=== PATIENT | female | born 1945 | race Caucasian/White ===

== ENCOUNTER → 2016-07-04 | Outpatient (CLI) | payer MEDICARE ==
[2016-07-04 09:45] LABS: CHCM 32.5; HCT 38.6 % (34.0-46.0); HDW 2.34; HGB 12.5 gm/dL (11.4-16.0); MCH 29.2 pg (25.0-35.0); MCHC 32.5 g/dL (31.0-37.0); MCV 89.8 fL (80.0-100.0); Mean Platelet Volume 7.5; RDW 14.6 % (11.5-15.5); WBC 5.8 k/uL (3.8-10.6)
[2016-07-04 09:55] LABS: Anion Gap 13 mmol/L; Blood Urea Nitrogen 22 mg/dL (7-17); Carbon Dioxide 26 mmol/L (22-30); Chloride 105 mmol/L (98-107); Non-African American GFR(MDRD) >60 (>60 ml/min/1.73 sqM); Potassium 4.6 mmol/L (3.5-5.1); Sodium 144 mmol/L (137-145)
== END | disposition home or self-care (01) ==
LOC: LABWHC1 09:24
PROVIDERS: ATTEND Internal Medicine Cardiovascular Disease
DX: R60.0 Localized edema (principal)
CPT/HCPCS: 36415; 80051; 82565; 83880; 84443; 84520; 85027

== ENCOUNTER → 2017-02-16 | Outpatient (CLI) | payer MEDICARE ==
--- NOTE | 2017-02-20 10:12 | MM ---
Reason for exam: screening (asymptomatic). Last mammogram was performed 1 year and 6 months ago. History: Patient is postmenopausal. Family history of breast cancer in sister at age 71 and breast cancer in mother at age 68. Took hormonal contraceptives for 7 years beginning at age 27. Physical Findings: A clinical breast exam by your physician is recommended on an annual basis and results should be correlated with mammographic findings. MG 3D Screening Mammo W/Cad Bilateral CC, MLO, and CV view(s) were taken. Prior study comparison: August 13, 2015, bilateral MG screening mammo w CAD. April 17, 2014, bilateral MG screening mammo w CAD. The breast tissue is heterogeneously dense. This may lower the sensitivity of mammography. No significant changes when compared with prior studies. ASSESSMENT: Benign, BI-RAD 2 RECOMMENDATION: Routine screening mammogram of both breasts in 1 year.
== END | disposition home or self-care (01) ==
LOC: RADMAMWWP 07:39
PROVIDERS: ATTEND Family Medicine
DX: Z12.31 Encounter for screening mammogram for malignant neoplasm of breast (principal)
CPT/HCPCS: 77063; G0202

== ENCOUNTER → 2018-11-26 | Outpatient (CLI) | payer MEDICARE ==
--- NOTE | 2018-11-27 13:24 | MM ---
Reason for exam: screening (asymptomatic). Last mammogram was performed 1 year and 9 months ago. History: Patient is postmenopausal. Family history of breast cancer in sister at age 71 and breast cancer in mother at age 68. Took hormonal contraceptives for 7 years beginning at age 27. Physical Findings: A clinical breast exam by your physician is recommended on an annual basis and results should be correlated with mammographic findings. MG 3D Screening Mammo W/Cad Bilateral CC and MLO view(s) were taken. Prior study comparison: February 16, 2017, bilateral MG 3d screening mammo w/cad. August 13, 2015, bilateral MG screening mammo w CAD. The breast tissue is heterogeneously dense. This may lower the sensitivity of mammography. No significant changes when compared with prior studies. ASSESSMENT: Negative, BI-RAD 1 RECOMMENDATION: Routine screening mammogram of both breasts in 1 year.
== END | disposition home or self-care (01) ==
LOC: RADMAMWWP 10:09
PROVIDERS: ATTEND Family Medicine
DX: Z12.31 Encounter for screening mammogram for malignant neoplasm of breast (principal)
CPT/HCPCS: 77063; 77067

== ENCOUNTER → 2020-08-04 | Outpatient (CLI) | payer MEDICARE ==
[2020-08-04 11:03] LABS: Amorphous Sediment,Urine Rare /hpf; Appearance,Urine Turbid (Clear); Bacteria,Urine Occasional /hpf; Bilirubin,Urine Negative (Negative); Blood,Urine Small (Negative); Color,Urine Yellow; Glucose,Urine (UA) Negative (Negative); Hyaline Casts,Urine 14 /lpf (0-2); Ketones,Urine Negative (Negative); Leukocyte Esterase,Urine Large (Negative); Mucus,Urine Rare /hpf; Nitrite,Urine Negative (Negative); PH, Urine 6.5 (5.0-8.0); Protein,Urine 1+ (Negative); RBC,Urine 8 /hpf (0-5); Specific Gravity,Urine 1.016 (1.001-1.035); Squamous Epithelial Cell,Urine 62 /hpf (0-4); Urobilinogen,Urine <2.0 mg/dL (<2.0); WBC,Urine >182 /hpf (0-5)
[2020-08-04 16:14] LABS: Basophils # (A) 0.03 X 10*3/uL (0.00-0.10); Basophils % (A) 0.5 %; Eosinophils # (A) 0.23 X 10*3/uL (0.04-0.35); Eosinophils % (A) 3.6 %; HCT 37.4 % (37.2-46.3); HGB 11.8 g/dL (12.0-15.0); Lymphocytes # (A) 1.17 X 10*3/uL (0.90-5.00); Lymphocytes % (A) 18.2 %; MCH 29.5 pg (27.0-32.0); MCHC 31.6 g/dL (32.0-37.0); MCV 93.5 fL (80.0-97.0); Mean Platelet Volume 10.5 fL (9.5-12.2); Monocytes # (A) 0.59 X 10*3/uL (0.20-1.00); Monocytes % (A) 9.2 %; Neutrophils # (A) 4.39 X 10*3/uL (1.80-7.70); Neutrophils % (A) 68.2 %; Platelet Count 272 X 10*3/uL (140-440); RDW 13.7 % (11.5-14.5); WBC 6.43 X 10*3/uL (4.50-10.00)
[2020-08-04 18:14] LABS: Erythrocyte Sedimentation Rate 40 mm/Hr (0-30)
[2020-08-04 18:21] LABS: African American GFR (CKD) 24.6 (60.0-200.0); Albumin 4.4 g/dL (3.80-4.90); Albumin/Globulin Ratio 1.76 (1.60-3.17); Anion Gap 10.3 mmol/L (4.00-12.00); BUN/Creat Ratio 27.27 Ratio (12.00-20.00); Calcium 10.2 mg/dL (8.7-10.3); Carbon Dioxide 29.7 mmol/L (21.6-31.8); Chol/HDL Ratio 5.23; Globulin 2.5 g/dL (1.6-3.3); Non-African American GFR(CKD) 21.2 (60.0-200.0); Potassium 4.4 mmol/L (3.5-5.5); Total Bilirubin 0.4 mg/dL (0.2-1.2); Total Protein 6.9 g/dL (6.2-8.2)
[2020-08-04 18:36] LABS: T4, Free (Free Thyroxine) 1.1 ng/dL (0.80-1.80)
== END | disposition home or self-care (01) ==
LOC: LABWHC1 09:16
PROVIDERS: ATTEND Internal Medicine Cardiovascular Disease
DX: I10 Essential (primary) hypertension (principal); E78.2 Mixed hyperlipidemia
CPT/HCPCS: 36415; 80053; 80061; 81001; 82306; 82550; 84439; 84443; 85025; 85652; 87086

== ENCOUNTER → 2020-11-02 | Outpatient (CLI) | payer MEDICARE ==
--- NOTE | 2020-11-05 14:09 | MM ---
Reason for exam: screening (asymptomatic). Last mammogram was performed 1 year and 11 months ago. History: Patient is postmenopausal. Family history of breast cancer in sister at age 71 and breast cancer in mother at age 68. Took hormonal contraceptives for 7 years beginning at age 27. Physical Findings: A clinical breast exam by your physician is recommended on an annual basis and results should be correlated with mammographic findings. MG 3D Screening Mammo W/Cad Bilateral CC and MLO view(s) were taken. Prior study comparison: November 26, 2018, bilateral MG 3d screening mammo w/cad. February 16, 2017, bilateral MG 3d screening mammo w/cad. There are scattered fibroglandular densities. No significant changes when compared with prior studies. ASSESSMENT: Benign, BI-RAD 2 RECOMMENDATION: Routine screening mammogram of both breasts in 1 year.
== END | disposition home or self-care (01) ==
LOC: RADMAMWWP 08:42
PROVIDERS: ATTEND Family Medicine
DX: Z12.31 Encounter for screening mammogram for malignant neoplasm of breast (principal); Z78.0 Asymptomatic menopausal state; Z79.3 Long term (current) use of hormonal contraceptives; Z80.3 Family history of malignant neoplasm of breast
CPT/HCPCS: 77063; 77067

== ENCOUNTER → 2020-11-18 | Outpatient (CLI) | payer MEDICARE ==
[2020-11-18 19:52] LABS: Basophils # (A) 0.04 X 10*3/uL (0.00-0.10); Basophils % (A) 0.6 %; Eosinophils # (A) 0.34 X 10*3/uL (0.04-0.35); Eosinophils % (A) 4.9 %; HCT 32.5 % (37.2-46.3); HGB 10.2 g/dL (12.0-15.0); Lymphocytes % (A) 17.1 %; MCH 29.1 pg (27.0-32.0); MCHC 31.4 g/dL (32.0-37.0); MCV 92.6 fL (80.0-97.0); Mean Platelet Volume 10.3 fL (9.5-12.2); Monocytes # (A) 0.67 X 10*3/uL (0.20-1.00); Monocytes % (A) 9.6 %; Neutrophils # (A) 4.71 X 10*3/uL (1.80-7.70); Neutrophils % (A) 67.2 %; Platelet Count 277 X 10*3/uL (140-440); RBC 3.51 X 10*6/uL (4.10-5.20); RDW 13.3 % (11.5-14.5)
[2020-11-18 22:00] LABS: Erythrocyte Sedimentation Rate 54 mm/Hr (0-30)
[2020-11-19 03:39] LABS: T4, Free (Free Thyroxine) 1.1 ng/dL (0.80-1.80)
[2020-11-19 04:00] LABS: African American GFR (CKD) 33.6 (60.0-200.0); Albumin 4.1 g/dL (3.80-4.90); Albumin/Globulin Ratio 1.64 (1.60-3.17); Anion Gap 9.8 mmol/L (4.00-12.00); BUN/Creat Ratio 38.82 Ratio (12.00-20.00); Calcium 9.5 mg/dL (8.7-10.3); Carbon Dioxide 25.2 mmol/L (21.6-31.8); Chol/HDL Ratio 4.1; Globulin 2.5 g/dL (1.6-3.3); Phosphorus 3.2 mg/dL (2.4-5.1); Potassium 4.5 mmol/L (3.5-5.5); Total Bilirubin 0.3 mg/dL (0.3-1.2); Total Protein 6.6 g/dL (6.2-8.2); Uric Acid 10.2 mg/dL (2.9-7.7)
== END | disposition home or self-care (01) ==
LOC: LABWHC1 11:13
PROVIDERS: ATTEND Family Medicine
DX: E78.00 Pure hypercholesterolemia, unspecified (principal); I10 Essential (primary) hypertension; I25.10 Atherosclerotic heart disease of native coronary artery without angina pectoris
CPT/HCPCS: 36415; 80053; 80061; 83735; 83970; 84100; 84439; 84443; 84550; 85025; 85652

== ENCOUNTER 2021-02-03 07:51 | Day surgery (SDC) | payer MEDICARE ==
[2021-01-29 12:38] VITALS: BMI 27.4
[~2021-02-03 07:51] MED LIST: LACTATED RINGERS 1,000 ML IV SCH; LIDOCAINE 1% (10MG/ML) FOR IV START INTRADERMA PRN
[2021-02-03 08:23] VITALS: RESP 16; TEMP 97.3
[2021-02-03] MEDS ORDERED: LIDOCAINE 1% INJ 10MG/ML (20 ML MDV) ONE (08:56)
[2021-02-03] MEDS ORDERED: PROPOFOL 10 MG/ML 20 ML VIAL IV ONE (08:56)
--- NOTE | 2021-02-03 09:20 | P.PCN ---
Date of Procedure: 02/03/21 Procedure(s) Performed: Brief history: Patient is a pleasant 75-year-old white female scheduled for an elective upper endoscopy as well as colonoscopy as a part of evaluation of Iron deficiency anemia. Procedure performed: Esophagogastroduodenoscopy with biopsy Colonoscopy and snare polypectomy Preoperative diagnosis: Iron deficiency anemia [place] [facility] [place] After informed consent was obtained from the patient was brought into the endoscopy unit and IV sedation was administered by anesthesia under continuous monitoring. Initially upper endoscopy was done. The Olympus GF 160 video endoscope was inserted inserted into the mouth and esophagus intubated without any difficulty and was gradually advanced into the stomach and duodenum and carefully examined. The bulb and second part of the duodenum appeared normal. Biopsies were done from the duodenum to rule out celiac disease. The scope was then withdrawn into the stomach adequately insufflated with air and upon careful examination the antrum and body, cardia and fundus appeared normal. The scope was then withdrawn into the esophagus. The GE junction was located at 36 cm to the incisors. All sliding type hiatal hernia noted. It appeared irregular and there was short segment of Wright's esophagus identified which was biopsied. Rest of the esophagus appeared normal. Patient tolerated the procedure well. At this time the patient continued to remain sedation. Initial digital rectal examination was normal. Olympus CF 160 video colonoscope was then inserted into the rectum and gradually advanced to the cecum without any difficulty. Careful examination was performed as the scope was gradually being withdrawn. The prep was excellent. The cecum, appeared normal. In the ascending colon was a 5-6 mm sessile polyp removed by snare polypectomy. Rest of the ascending colon, transverse colon, descending colon, sigmoid colon and rectum appeared normal. In the proximal rectum there was a 4 mm polyp that was removed by snare polypectomy. Retroflexion was performed in the rectum and no lesions were noted. Patient tolerated the procedure well. Impression: 1. Upper Endoscopy revealed small size hiatal hernia and short segment Wright's esophagus. 2. Colonoscopy revealed 5-6 mm ascending colon polyp status post polypectomy and 3 mm proximal rectal polyp status post polypectomy Recommendations: Findings of this examination were discussed with the patient as well as her family. She was advised to follow with the biopsy results. If the biopsies reveal adenoma she can have a repeat colonoscopy in 5 years.
[2021-02-03 09:39] VITALS: BP 123/67; PULSE 63
== END 2021-02-03 10:10 | disposition home or self-care (01) ==
LOC: ORWHC2ENDO 07:51
PROVIDERS: ATTEND Internal Medicine Gastroenterology
DX: D50.9 Iron deficiency anemia, unspecified (principal); K22.70 Barrett's esophagus without dysplasia; K44.9 Diaphragmatic hernia without obstruction or gangrene; Z87.19 Personal history of other diseases of the digestive system
CPT/HCPCS: 45385; 43239; J2001; J2704; 88305

== ENCOUNTER → 2021-02-08 | Outpatient (CLI) | payer MEDICARE ==
--- NOTE | 2021-02-08 15:55 | US ---
EXAMINATION TYPE: US kidneys/renal and bladder DATE OF EXAM: 02/08/2021 COMPARISON: NONE CLINICAL HISTORY: N18.4 Chronic kidney disease stage 4. Renal disease per patient. EXAM MEASUREMENTS: Right Kidney: 11.2 x 4.5 x 4.1 cm Left Kidney: 10.4 x 4.6 x 4.8 cm Right Kidney: No hydronephrosis or renal mass Left Kidney: No hydronephrosis or masses seen Bladder: distended, anechoic Left jet seen There is no evidence for hydronephrosis at this point in time. No nephrolithiasis is seen. No gloria s are identified. Cortical medullary differentiation is maintained. The urinary bladder is anechoic. IMPRESSION: No hydronephrosis.
== END | disposition home or self-care (01) ==
LOC: RADUSWWP 15:04
PROVIDERS: ATTEND Internal Medicine Nephrology
DX: N18.4 Chronic kidney disease, stage 4 (severe) (principal)
CPT/HCPCS: 76770

== ENCOUNTER → 2021-04-20 | Outpatient (CLI) | payer MEDICARE ==
[2021-04-20 12:02] LABS: Appearance,Urine Clear (Clear); Bilirubin,Urine Negative (Negative); Blood,Urine Negative (Negative); Color,Urine Light Yellow; Glucose,Urine (UA) Negative (Negative); Ketones,Urine Negative (Negative); Leukocyte Esterase,Urine Negative (Negative); Nitrite,Urine Negative (Negative); Protein,Urine Negative (Negative); Specific Gravity,Urine 1.007 (1.001-1.035); Urobilinogen,Urine <2.0 mg/dL (<2.0)
[2021-04-20 13:27] LABS: Creatinine,Urine Random 29.7 mg/dL; Protein/Creatinine Ratio,Urine 0.303
[2021-04-20 21:04] LABS: Basophils # (A) 0.04 X 10*3/uL (0.00-0.10); Basophils % (A) 0.7 %; Eosinophils # (A) 0.29 X 10*3/uL (0.04-0.35); Eosinophils % (A) 4.8 %; HCT 34.9 % (37.2-46.3); HGB 10.9 g/dL (12.0-15.0); Lymphocytes # (A) 1.29 X 10*3/uL (0.90-5.00); Lymphocytes % (A) 21.4 %; MCH 28.2 pg (27.0-32.0); MCHC 31.2 g/dL (32.0-37.0); MCV 90.4 fL (80.0-97.0); Mean Platelet Volume 9.9 fL (9.5-12.2); Monocytes # (A) 0.59 X 10*3/uL (0.20-1.00); Monocytes % (A) 9.8 %; Neutrophils # (A) 3.76 X 10*3/uL (1.80-7.70); Neutrophils % (A) 62.5 %; Platelet Count 288 X 10*3/uL (140-440); RBC 3.86 X 10*6/uL (4.10-5.20); RDW 14.5 % (11.5-14.5); WBC 6.02 X 10*3/uL (4.50-10.00)
[2021-04-20 22:23] LABS: % Iron Saturation 19.45 (12.00-45.00); African American GFR (CKD) 45.3 (60.0-200.0); Albumin 3.8 g/dL (3.8-4.9); Anion Gap 9.7 mmol/L (10.00-18.00); BUN/Creat Ratio 23.11 Ratio (12.00-20.00); Blood Urea Nitrogen 30.5 mg/dL (9.0-27.0); Calcium 9.5 mg/dL (8.7-10.3); Carbon Dioxide 25.6 mmol/L (20.0-27.5); Magnesium 2.1 mg/dL (1.5-2.4); Non-African American GFR(CKD) 39.1 (60.0-200.0); Potassium 4.5 mmol/L (3.5-5.5); Uric Acid 7.1 mg/dL (2.9-7.7)
== END | disposition home or self-care (01) ==
LOC: LABWHC1 11:05
PROVIDERS: ATTEND Nurse Practitioner Family
DX: N25.81 Secondary hyperparathyroidism of renal origin (principal); E55.9 Vitamin D deficiency, unspecified; M10.9 Gout, unspecified; N39.0 Urinary tract infection, site not specified; D64.9 Anemia, unspecified; R80.9 Proteinuria, unspecified; N18.4 Chronic kidney disease, stage 4 (severe)
CPT/HCPCS: 36415; 80048; 81003; 82040; 82306; 82570; 82728; 83540; 83550; 83735; 83970; 84100; 84156; 84550; 85025

== ENCOUNTER → 2022-02-15 | Outpatient (CLI) | payer MEDICARE ==
--- NOTE | 2022-02-16 08:10 | MM ---
Reason for Exam: Screening (asymptomatic). Last mammogram was performed 1 year(s) and 4 month(s) ago. Patient History: Menarche at age 14. First Full-Term at age 25. Postmenopausal. Hormonal Contraceptives for 7 years from age 27 until age 34. Sister had breast cancer, age 71. Mother had breast cancer, age 68. Risk Values: Rula 5 year model risk: 5.5%. NCI Lifetime model risk: 11.0%. Prior Study Comparison: 02/16/2017 Bilateral Screening Mammogram, [facility]. 11/26/2018 Bilateral Screening Mammogram, [facility]. 11/02/2020 Bilateral Screening Mammogram, [facility]. Tissue Density: The breast tissue is heterogeneously dense. This may lower the sensitivity of mammography. Findings: Analyzed By CAD. There are rounded and linear calcifications redemonstrated throughout the bilateral breasts. There is no suspicious group of microcalcifications or new suspicious mass in either breast. Overall Assessment: Benign, BI-RAD 2 Management: Screening Mammogram of both breasts in 1 year. A clinical breast exam by your physician is recommended on an annual basis and results should be correlated with mammographic findings. Electronically signed and approved by: Terry Zuleta M.D.
== END | disposition home or self-care (01) ==
LOC: RADMAMWWP 07:13
PROVIDERS: ATTEND Family Medicine
DX: Z12.31 Encounter for screening mammogram for malignant neoplasm of breast (principal); Z78.0 Asymptomatic menopausal state; Z80.3 Family history of malignant neoplasm of breast
CPT/HCPCS: 77063; 77067

== ENCOUNTER 2022-03-09 07:39 | Inpatient (IN) | payer MEDICARE ==
[2022-03-09] MEDS ORDERED: ASPIRIN 81 MG PO STA (08:02)
[2022-03-09] MEDS ORDERED: NITROGLYCERIN OINT 1 INCH/GM PACKET TOPICAL STA (08:02)
--- NOTE | 2022-03-09 08:06 | ED ---
General Adult HPI - General Chief complaint: Chest Pain Stated complaint: chest pain Time Seen by Provider: 03/09/22 07:47 Source: patient, family, RN notes reviewed, old records reviewed Mode of arrival: wheelchair Limitations: no limitations - History of Present Illness Initial comments: This is a 76-year-old female with past medical history significant for high blood pressure, high cholesterol, angina, smoking history but quit 20 years ago and family history is very strong. Patient comes in today complaining of chest pain intermittently over the last 2 weeks. Patient states when she has the pain she short of breath and nauseated. Patient states the pain is severe and it doubles her over on occasion. Patient states this morning the difference was the pain radiated to her back. Patient states currently the pain is very mild but it still there on the left side. Patient denies any fever chills or cough per patient denies abdominal pain patient denies any vomiting or diarrhea. Patient denies any swelling to the legs or calf tenderness. Patient denies any lightheadedness or dizziness. - Related Data Home Medications Medication Instructions Recorded Confirmed Aspirin EC [Ecotrin] 325 mg PO DAILY 01/29/21 03/09/22 Cholecalciferol [Vitamin D3 (25 100 mcg PO DAILY 01/29/21 03/09/22 Mcg = 1000 Iu)] Ezetimibe [Zetia] 10 mg PO DAILY 01/29/21 03/09/22 Furosemide [Lasix] 20 mg PO BID 01/29/21 03/09/22 Isosorbide Mononitrate ER [Imdur] 30 mg PO DAILY 01/29/21 03/09/22 Metoprolol Succinate (ER) [Toprol 100 mg PO DAILY 01/29/21 03/09/22 Xl] Nitroglycerin Sl Tabs [Nitrostat] 0.4 mg SUBLINGUAL Q5M PRN 01/29/21 03/09/22 Oxybutynin Chloride [Oxybutynin 15 mg PO DAILY 01/29/21 03/09/22 Chloride ER] Potassium Chloride [K-Tab ER] 20 meq PO DAILY 01/29/21 03/09/22 Pravastatin Sodium 80 mg PO HS 01/29/21 03/09/22 Biotin [Biotin Disolve] 5,000 mcg PO DAILY 03/09/22 03/09/22 Famotidine [Pepcid] 40 mg PO BID 03/09/22 03/09/22 Ferrous Sulfate [Feosol] 325 mg PO DAILY 03/09/22 03/09/22 Hyoscyamine Sulfate [Hyoscyamine 0.125 mg SL AC-BID 03/09/22 03/09/22 Sulfate SL] lisinopriL [Zestril] 5 mg PO DAILY 03/09/22 03/09/22 Allergies Allergy/AdvReac Type Severity Reaction Status Date / Time Penicillins Allergy Unknown Rash/Hives, Verified 03/09/22 09:19 Swelling Review of Systems ROS Statement: Those systems with pertinent positive or pertinent negative responses have been documented in the HPI. ROS Other: All systems not noted in ROS Statement are negative. Past Medical History Past Medical History: GERD/Reflux, Renal Disease Additional Past Medical History / Comment(s): kidney disease, angina History of Any Multi-Drug Resistant Organisms: None Reported Past Surgical History: No Surgical Hx Reported Past Psychological History: No Psychological Hx Reported Smoking Status: Former smoker Past Alcohol Use History: Rare Past Drug Use History: None Reported General Exam - General Exam Comments Initial Comments: GENERAL: Patient is well-developed and well-nourished. Patient is nontoxic and well- hydrated and is in mild distress. ENT: Neck is soft and supple. No significant lymphadenopathy is noted. Oropharynx is clear. Moist mucous membranes. Neck has full range of motion without eliciting any pain. EYES: The sclera were anicteric and conjunctiva were pink and moist. Extraocular movements were intact and pupils were equal round and reactive to light. Eyelids were unremarkable. PULMONARY: Unlabored respirations. Good breath sounds bilaterally. No audible rales rhonchi or wheezing was noted. CARDIOVASCULAR: There is a regular rate and rhythm without any murmurs gallops or rubs. ABDOMEN: Soft and nontender with normal bowel sounds. SKIN: Skin is clear with no lesions or rashes and otherwise unremarkable. NEUROLOGIC: Patient is alert and oriented x3. Cranial nerves II through XII are grossly intact. Motor and sensory are also intact. Normal speech, volume and content. Symmetrical smile. MUSCULOSKELETAL: Normal extremities with adequate strength and full range of motion. LYMPHATICS: No significant lymphadenopathy is noted PSYCHIATRIC: Normal psychiatric evaluation. Limitations: no limitations Course Vital Signs 03/09/22 03/09/22 03/09/22 07:40 09:08 10:12 Temperature 97.0 F L Pulse Rate 87 75 97 Respiratory 18 16 16 Rate Blood Pressure 179/81 139/70 144/82 O2 Sat by Pulse 96 Oximetry Medical Decision Making - Medical Decision Making EKG is interpreted by me and shows a sinus rhythm at 70 bpm MS interval is 216 QRS is 80 QT interval 359 QTC is 392. Patient's EKG shows ST segment depression in leads V2 through V6 6 as well as inferior leads II, III, and F aVF. 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 I showed Dr. Morgan this and spoke with Dr. Morgan he agrees is grossly abnormal and will be taking the patient to the [facility] at some point. Patient's d-dimer was also elevated and because the patient was having pain that radiated to her back that came in with severe we are c oncerned about a dissection so we sent the patient to CAT scan even knowing the creatinine was 1.8 with a GFR of 26. Dr. Morgan agreed that this was necessary as that eye. I started the patient on heparin. I gave the patient a 500 fluid bolus before and after the CAT scan. I started the patient on heparin. I read the chest x-ray showed no acute abnormality. I spoke with the radiologist before I did the scan and he agreed to speak to the CT techs to optimize the scan. I spoke with Dr. Graham he agreed to admit the patient minute the patient wrote admitting orders I consulted cardiology. Heparin will be continued on the floor as well as Nitropaste and aspirin. CT of the chest was interpreted by me I saw no obvious dissection or pulmonary embolus. A repeat EKG was done when the patient started to experience more chest pain. EKG showed a sinus rhythm at 73 bpm MS interval is 195 QRSs 81 Q-T intervals 381 QTC is 406 per patient's EKG shows ST segment depression in precordial leads V2 through V5. The depression that was in the inferior leads earlier has resolved. - Lab Data Result diagrams: 03/09/22 08:20 03/09/22 08:20 Lab Results 03/09/22 03/09/22 03/09/22 Range/Units 08:20 08:20 08:20 WBC 5.2 (3.8-10.6) k/uL RBC 4.02 (3.80-5.40) m/uL Hgb 12.0 (11.4-16.0) gm/dL Hct 35.5 (34.0-46.0) % MCV 88.5 (80.0-100.0) fL MCH 29.8 (25.0-35.0) pg MCHC 33.7 (31.0-37.0) g/dL RDW 13.4 (11.5-15.5) % Plt Count 217 (150-450) k/uL MPV 8.1 Neutrophils % 68 % Lymphocytes % 17 % Monocytes % 7 % Eosinophils % 5 % Basophils % 1 % Neutrophils # 3.5 (1.3-7.7) k/uL Lymphocytes # 0.9 L (1.0-4.8) k/uL Monocytes # 0.4 (0-1.0) k/uL Eosinophils # 0.3 (0-0.7) k/uL Basophils # 0.1 (0-0.2) k/uL PT 10.0 (9.0-12.0) sec INR 0.9 (<1.2) APTT 22.5 (22.0-30.0) sec D-Dimer 1.19 H (<0.60) mg/L FEU Sodium 139 (137-145) mmol/L Potassium 4.3 (3.5-5.1) mmol/L Chloride 103 (98-107) mmol/L Carbon Dioxide 30 (22-30) mmol/L Anion Gap 6 mmol/L BUN 49 H (7-17) mg/dL Creatinine 1.87 H (0.52-1.04) mg/dL Est GFR (CKD-EPI)AfAm 30 (>60 ml/min/1.73 sqM) Est GFR (CKD-EPI)NonAf 26 (>60 ml/min/1.73 sqM) Glucose 109 H (74-99) mg/dL Calcium 9.4 (8.4-10.2) mg/dL Magnesium 1.8 (1.6-2.3) mg/dL Total Bilirubin 0.5 (0.2-1.3) mg/dL AST 22 (14-36) U/L ALT 18 (4-34) U/L Alkaline Phosphatase 71 (38-126) U/L Troponin I (0.000-0.034) ng/mL Total Protein 6.7 (6.3-8.2) g/dL Albumin 4.0 (3.5-5.0) g/dL 03/09/22 Range/Units 08:20 WBC (3.8-10.6) k/uL RBC (3.80-5.40) m/uL Hgb (11.4-16.0) gm/dL Hct (34.0-46.0) % MCV (80.0-100.0) fL MCH (25.0-35.0) pg MCHC (31.0-37.0) g/dL RDW (11.5-15.5) % Plt Count (150-450) k/uL MPV Neutrophils % % Lymphocytes % % Monocytes % % Eosinophils % % Basophils % % Neutrophils # (1.3-7.7) k/uL Lymphocytes # (1.0-4.8) k/uL Monocytes # (0-1.0) k/uL Eosinophils # (0-0.7) k/uL Basophils # (0-0.2) k/uL PT (9.0-12.0) sec INR (<1.2) APTT (22.0-30.0) sec D-Dimer (<0.60) mg/L FEU Sodium (137-145) mmol/L Potassium (3.5-5.1) mmol/L Chloride (98-107) mmol/L Carbon Dioxide (22-30) mmol/L Anion Gap mmol/L BUN (7-17) mg/dL Creatinine (0.52-1.04) mg/dL Est GFR (CKD-EPI)AfAm (>60 ml/min/1.73 sqM) Est GFR (CKD-EPI)NonAf (>60 ml/min/1.73 sqM) Glucose (74-99) mg/dL Calcium (8.4-10.2) mg/dL Magnesium (1.6-2.3) mg/dL Total Bilirubin (0.2-1.3) mg/dL AST (14-36) U/L ALT (4-34) U/L Alkaline Phosphatase (38-126) U/L Troponin I <0.012 (0.000-0.034) ng/mL Total Protein (6.3-8.2) g/dL Albumin (3.5-5.0) g/dL Critical Care Time Critical Care Time: Yes Total Critical Care Time: 35 Disposition Clinical Impression: Unstable angina, Renal insufficiency, Anterior ST segment depression Disposition: ADMITTED IP TO THIS [facility] Time of Disposition: 09:46
[2022-03-09] MEDS ORDERED: HYDROmorphone 0.5 MG/0.5 ML SYRINGE IVP STA ×2 (08:24→10:06)
[2022-03-09 08:26] LABS: Basophils # (A) 0.1 k/uL (0-0.2); Basophils % (A) 1 %; Eosinophils # (A) 0.3 k/uL (0-0.7); Eosinophils % (A) 5 %; HCT 35.5 % (34.0-46.0); Lymphocytes # (A) 0.9 k/uL (1.0-4.8); Lymphocytes % (A) 17 %; MCH 29.8 pg (25.0-35.0); MCHC 33.7 g/dL (31.0-37.0); MCV 88.5 fL (80.0-100.0); Mean Platelet Volume 8.1; Monocytes # (A) 0.4 k/uL (0-1.0); Monocytes % (A) 7 %; Neutrophils # (A) 3.5 k/uL (1.3-7.7); Neutrophils % (A) 68 %; Platelet Count 217 k/uL (150-450); RBC 4.02 m/uL (3.80-5.40); RDW 13.4 % (11.5-15.5); WBC 5.2 k/uL (3.8-10.6)
--- NOTE | 2022-03-09 08:45 | XR ---
EXAMINATION TYPE: XR chest 2V DATE OF EXAM: 03/09/2022 COMPARISON: NONE HISTORY: Shortness of breath TECHNIQUE: Frontal and lateral views of the chest are obtained. FINDINGS: Scattered senescent parenchymal changes noted. Hyperinflation compatible with COPD. No evidence for infiltrate. No evidence for atelectasis. Heart size is stable. Mediastinal structures are stable and grossly unremarkable. No evidence for hilar prominence. Degenerative changes dorsal spine. IMPRESSION: 1. No evidence for acute pulmonary disease.
[2022-03-09 08:51] LABS: Calcium 9.4 mg/dL (8.4-10.2); INR 0.9 (<1.2); Magnesium 1.8 mg/dL (1.6-2.3); Partial Thromboplastin Time 22.5 sec (22.0-30.0); Potassium 4.3 mmol/L (3.5-5.1); Total Bilirubin 0.5 mg/dL (0.2-1.3); Total Protein 6.7 g/dL (6.3-8.2)
[2022-03-09] MEDS ORDERED: HEPARIN SODIUM 1,000 UN/ML (10ML VL) IV ONE (09:00)
[2022-03-09] MEDS: SODIUM CHLORIDE 0.9% 1,000 ML IV STA ×2 (09:25→18:35)
[2022-03-09] MEDS: HEPARIN SOD,PORK IN 0.45% NACL 25,000 UNIT in 0.45% NACL 1 250ML.BAG IV SCH (09:30)
[2022-03-09] MEDS ORDERED: NITROGLYCERIN SL TABS 0.4 MG TAB SUBLINGUAL PRN ×2 (09:47→11:02)
--- NOTE | 2022-03-09 10:27 | CT ---
EXAMINATION TYPE: CT angio thor/abd pel aorta DATE OF EXAM: 03/09/2022 COMPARISON: Chest 03/09/2022 radiograph HISTORY: 76-year-old female chest pain, elevated d-dimer TECHNIQUE: Contiguous axial scanning of the chest, abdomen, and pelvis performed without and with IV Contrast, patient injected with 100 mL of Isovue 370. Coronal/sagittal MIP reconstructions performed. 3-D reconstructions generated on a dedicated independent workstation. CT DLP: 1187.8 mGycm Automated exposure control for dose reduction was used. FINDINGS: Chest: The heart is normal size without pericardial effusion. Some mitral annular calcifications are present . LCA, proximal LAD, proximal circumflex, and RCA coronary artery calcifications are present and are remarkable for coronary artery disease. Aorta normal caliber with moderate scattered atherosclerotic calcifications throughout. Bovine config uration to the aortic arch. Possible moderate atherosclerotic narrowing at the proximal left subclavi an artery. Possible additional moderate focal stenosis left subclavian artery beyond its takeoff just before the takeoff of the left vertebral artery. Initial noncontrast images show no evidence for acu te intracranial hematoma or There is no evidence for aortic dissection or aneurysm. Satisfactory opacification of the pulmonary arterial system. There is some breathing motion artifact but no definite pulmonary embolus seen. Possible enlarged 2.1 cm right paraesophageal lymph node at the mid chest level. However, no addition al thoracic lymphadenopathy is seen. Mild biapical pleural parenchymal scarring with minimal emphysematous change. Strandy atelectasis in the lower lungs. No consolidation or pleural effusion. ABDOMEN: Small hiatal hernia. Limited arterial phase imaging of the abdomen is further limited by patient breathing motion artifact . There is limited assessment of the liver, gallbladder, adrenal glands, kidneys, spleen, and mildly atrophic pancreas show no gross abnormality. Moderate atherosclerotic calcifications throughout the abdominal aorta without aneurysm or dissection . Suspected moderate atherosclerotic narrowing at the origin of the celiac axis and SMA. Possible moderate or severe atherosclerotic narrowing at the origin of the left greater than right re nal arteries. Suspected accessory left renal artery branch. No dilated small bowel, free fluid, or free air. No mesenteric or retroperitoneal lymphadenopathy. Motion artifact limiting visualization of the appendix. There is [id number] stool. No pericolon ic inflammatory change seen. Redundant sigmoid colon. PELVIS: Bladder partially distended. Uterus anteverted. Suspect small bilateral ovaries. No abnormal fluid co llection in the pelvis or pelvic lymphadenopathy. BONES: Moderate degenerative change of the hips. Mild degenerative change SI joints. Moderate degenerative d isc disease L2-L3 and L5-S1 with hypertrophic facet arthropathy. No osseous destructive process seen. IMPRESSION: 1. NO EVIDENCE FOR AORTIC ANEURYSM, DISSECTION, OR ACUTE INTRAMURAL HEMATOMA. 2. BREATHING MOTION ARTIFACT LIMITING ASSESSMENT FOR PULMONARY EMBOLUS. NO DEFINITE PULMONARY EMBOLUS IS SEEN. 3. AT LEAST MODERATE CORONARY ARTERY CALCIFICATIONS, A MARKER FOR CORONARY ARTERY DISEASE. 4. MODERATE ATHEROSCLEROTIC CALCIFICATIONS THROUGHOUT THE AORTA ABOVE. POSSIBLE MODERATE OR SEVERE STENOSES AT THE BILATERAL RENAL ARTERY ORIGINS AND AT LEAST MODERATE STENOSES AT THE ORIGIN OF THE C ELIAC AXIS AND SMA. MODERATE STENOSES PROXIMAL LEFT SUBCLAVIAN ARTERY. 5. POSSIBLE ENLARGED 2.1 CM RIGHT PARAESOPHAGEAL LYMPH NODE VERSUS VASCULAR ECTASIA. 3 MONTH FOLLOW-U P CT CHEST TO REASSESS. EARLY NEOPLASM NOT EXCLUDED AT THIS TIME. 6. INCIDENTAL: COPD WITH MILD EMPHYSEMA. SMALL HIATAL HERNIA. MILD TO MODERATE STOOL BURDEN.
[2022-03-09] MEDS ORDERED: ALPRAZolam 0.25 MG TAB PO PRN (11:02)
[2022-03-09] MEDS ORDERED: ALPRAZolam 0.5 MG TAB PO PRN (11:02)
[2022-03-09] MEDS ORDERED: ASPIRIN 325 MG TAB PO STA (11:02)
[2022-03-09] MEDS ORDERED: ATORVASTATIN 80 MG TAB PO STA ×2 (11:02→19:28)
[2022-03-09] MEDS: NITROGLYCERIN OINT 1 INCH/GM PACKET TOPICAL SCH ×2 (11:35→17:34)
--- NOTE | 2022-03-09 12:22 | P.NPCON ---
History of Present Illness - Reason for Consult acute renal failure - History of Present Illness Patient is a 76-year-old female with history of hypertension, hypercholesterolemia and coronary artery disease. Patient is admitted to the hospital with complaints of chest pain which she has had on and off for the last 2 weeks it is not related to exertion. Troponin was negative, chest x-ray was negative Patient had CT angiogram in the ER which does not show any evidence of aortic aneurysm. Serum creatinine noted to be 1.8 mg/dL. Previous creatinine of 1.4 on 07/13/2021. Patient denies use of any nonsteroidal anti-inflammatory agents. She is maintained on WADE inhibitor's. Blood pressure has not been low. No history of fevers chills, nausea vomiting abdominal pain or diarrhea. Patient states that she was advised to see nephrology as outpatient as her kidney function had been borderline abnormal. Review of Systems As per HPI, other systems negative Past Medical History Past Medical History: GERD/Reflux, Renal Disease Additional Past Medical History / Comment(s): kidney disease, angina History of Any Multi-Drug Resistant Organisms: None Reported Past Surgical History: No Surgical Hx Reported Past Psychological History: No Psychological Hx Reported Smoking Status: Former smoker Past Alcohol Use History: Rare Past Drug Use History: None Reported Medications and Allergies Home Medications Medication Instructions Recorded Confirmed Type Aspirin EC [Ecotrin] 325 mg PO DAILY 01/29/21 03/09/22 History Cholecalciferol [Vitamin D3 (25 100 mcg PO DAILY 01/29/21 03/09/22 History Mcg = 1000 Iu)] Ezetimibe [Zetia] 10 mg PO DAILY 01/29/21 03/09/22 History Furosemide [Lasix] 20 mg PO BID 01/29/21 03/09/22 History Isosorbide Mononitrate ER [Imdur] 30 mg PO DAILY 01/29/21 03/09/22 History Metoprolol Succinate (ER) [Toprol 100 mg PO DAILY 01/29/21 03/09/22 History Xl] Nitroglycerin Sl Tabs [Nitrostat] 0.4 mg SUBLINGUAL Q5M PRN 01/29/21 03/09/22 History Oxybutynin Chloride [Oxybutynin 15 mg PO DAILY 01/29/21 03/09/22 History Chloride ER] Potassium Chloride [K-Tab ER] 20 meq PO DAILY 01/29/21 03/09/22 History Pravastatin Sodium 80 mg PO HS 01/29/21 03/09/22 History Biotin [Biotin Disolve] 5,000 mcg PO DAILY 03/09/22 03/09/22 History Famotidine [Pepcid] 40 mg PO BID 03/09/22 03/09/22 History Ferrous Sulfate [Feosol] 325 mg PO DAILY 03/09/22 03/09/22 History Hyoscyamine Sulfate [Hyoscyamine 0.125 mg SL AC-BID 03/09/22 03/09/22 History Sulfate SL] lisinopriL [Zestril] 5 mg PO DAILY 03/09/22 03/09/22 History Allergies Allergy/AdvReac Type Severity Reaction Status Date / Time Penicillins Allergy Unknown Rash/Hives, Verified 03/09/22 09:19 Swelling Physical Exam Vitals: Vital Signs Temp Pulse Resp BP Pulse Ox 03/09/22 12:01 98.2 F 64 16 128/56 95 03/09/22 10:12 97 16 144/82 03/09/22 09:08 75 16 139/70 03/09/22 07:40 97.0 F L 87 18 179/81 96 Intake and Output 03/08/22 03/09/22 03/09/22 22:59 06:59 14:59 Intake Total 9.545 Balance 9.545 Intake: Intake, IV Titration 9.545 Amount Heparin Sod,Pork in 0.45% 9.545 NaCl 25,000 unit In 0.45 % NaCl 1 250ml.bag @ 12 UNITS/KG/HR 9.09 mls/hr IV .Q24H [facility] Rx#: [id number] Other: Weight 75.75 kg Awake, comfortable, no acute distress Examination of the heart S1 and S2 Examination of the lungs bilateral breath sounds are heard Abdomen is soft nontender Examination of the lower extremities shows no evidence of edema MS SQL DBA exam grossly intact Results - Lab Results Most recent lab results Calcium 9.4 mg/dL (8.4-10.2) 03/09/22 08:20 Magnesium 1.8 mg/dL (1.6-2.3) 03/09/22 08:20 03/09/22 08:20 03/09/22 08:20 Assessment and Plan Assessment: 1. Acute kidney injury, most likely prerenal. Rule out ATN. Check urine analysis and check ultrasound of the kidneys. Status post CT angiogram on 03/09/2022 2. Chronic kidney disease NKF stage III with baseline creatinine about 1.3-1.4 mg/dL as of 07/13/2021. Etiology is likely nephrosclerosis. Previous UA on 04/20/2021 showed no evidence of proteinuria 3. Chest pain with negative troponin and CT angiogram. 4. Hypertension with CK D stage III, currently controlled 5. Dyslipidemia Plan: Continue with IV fluids Check urine analysis Check ultrasound of the kidneys Avoid any further nephrotoxic agents Repeat labs in a.m. Avoid hypotension Hold Wade inhibitors for now. Next Thank you for the consultation. We will continue to follow the patient with you during her hospitalization
--- NOTE | 2022-03-09 12:33 | CONS ---
CONSULTATION HISTORY OF PRESENT ILLNESS: This is a 76-year-old lady with mild nonobstructive coronary artery disease, hypertension, dyslipidemia, who presented to hospital complaining of intermittent episodes of chest discomfort that she primarily feels as an interscapular pain and came to the emergency room for the same. Her troponin is negative, D-dimer is slightly elevated, BUN and creatinine are elevated at 49 and 1.8, hemoglobin is normal at 12. The EKG shows significant changes of subendocardial ischemia. Because of the elevated troponin, she underwent CT scan of the chest that was negative for pulmonary embolism. There is no evidence of aortic aneurysm or dissection and there is no intramural hematoma. I am going to hydrate her and if her renal functions are stable, perform a cardiac catheterization on her tomorrow. There are EKG changes suggestive of subendocardial ischemia. I will order an echo on her today. PAST MEDICAL HISTORY: Significant for coronary artery disease, hypertension, and dyslipidemia. MEDICATIONS AT HOME: 1. Lasix 20 b.i.d. 2. Pepcid. 3. Zetia. 4. Aspirin. 5. Toprol-XL 100 mg daily. 6. Imdur 30 mg daily. 7. Pravastatin. 8. Zestril. 9. Biotin. ALLERGIES: To penicillin. FAMILY HISTORY: Negative for premature coronary artery disease. SOCIAL HISTORY: Negative for current smoking, EtOH abuse or drug abuse. REVIEW OF SYSTEMS: HEENT: Unremarkable. CARDIAC: As described above. RESPIRATORY: Negative. GI: Negative. GENITOURINARY: Negative. ALLERGY/IMMUNOLOGY: Negative. MUSCULOSKELETAL: Degenerative arthritis. PSYCHOSOCIAL: Negative. DERM: Negative. CONSTITUTIONAL: Negative. ONCOLOGICAL: Negative. MANAGER OF EMPLOYEE RELATIONS: Negative. Rest of the system review is not relevant. PHYSICAL EXAMINATION: GENERAL: Comfortable at rest. VITAL SIGNS: Heart rate is 97 beats, blood pressure is 140/80, and respiratory rate is 18. NECK: There is no jugular venous distention. Carotid upstroke is normal. There is no bruit. CHEST: Reveals good air entry bilaterally. HEART: First and second heart sounds. No gallop, no murmur. ABDOMEN: Soft, nontender. EXTREMITIES: Did not reveal any edema. Peripheral pulses are felt. MANAGER OF EMPLOYEE RELATIONS: Did not reveal focal neurological deficits. LABORATORY DATA: Show BUN 49, creatinine is 1.8, creatinine is 4.3, hemoglobin 12, and platelet count is 217. ASSESSMENT: 1. Unstable angina. 2. Hypertension. 3. Dyslipidemia. 4. Elevated D-dimer. PLAN: I will treat the patient with optimal medical therapy and schedule the patient for a catheterization tomorrow. HANS / ROJAS: [id number] /
[2022-03-09] MEDS ORDERED: NALOXONE 0.4 MG/ML 1 ML VIAL IV PRN (13:27)
--- NOTE | 2022-03-09 13:27 | P.HPIM ---
History of Present Illness H&P Date: 03/09/22 Chief Complaint: chest pain 76-year-old female with past medical history significant for high blood pressure, high cholesterol, angina, smoking history but quit 20 years ago and strong family history for coronary artery disease and heart attacks. She presented to the emergency department complaining of chest pain intermittently over the last 2 weeks. It is associated with shortness of breath, nausea vomiting. No diaphoresis. No fevers or chills, no recent illness. No heart palpitation. Pain is not necessarily exertional, it happened last night and she is not sure if it is related to her GERD or her heart. Patient states this morning the difference was the pain radiated to her back. The chest discomfort felt like a heavy sensation but when it radiated to the back it felt like a sharp pain. She said that years ago she had abnormal EKG, and heart catheteriz ation subsequently which showed coronary artery disease but did not have any stents or angioplasty. No abdominal pain, diarrhea. Patient denies any swelling to the legs or calf tenderness. Patient denies any lightheadedness or dizziness. In the emergency department vital signs are normal, EKG showed ST depression in V1 through V5 that is new compared to an old EKG. Labs showed creatinine 1.87, troponin negative. Rest of exam is okay. CT angiogram of the chest showed no aortic aneurysm, dissection or hematoma, no PE, mild emphysema as well as 2.1 cm right para esophageal lymph node versus vascular ectasia, follow-up CT in 3 months is recommended. Case was discussed with cardiology, patient was subsequently started on heparin drip and was admitted to the hospital for further evaluation and management. Review of Systems Complete review of system performed, pertinent positives per HPI, otherwise negative Past Medical History Past Medical History: GERD/Reflux, Renal Disease Additional Past Medical History / Comment(s): kidney disease, angina History of Any Multi-Drug Resistant Organisms: None Reported Past Surgical History: No Surgical Hx Reported Past Psychological History: No Psychological Hx Reported Smoking Status: Former smoker Past Alcohol Use History: Rare Past Drug Use History: None Reported Medications and Allergies Home Medications Medication Instructions Recorded Confirmed Type Aspirin EC [Ecotrin] 325 mg PO DAILY 01/29/21 03/09/22 History Cholecalciferol [Vitamin D3 (25 100 mcg PO DAILY 01/29/21 03/09/22 History Mcg = 1000 Iu)] Ezetimibe [Zetia] 10 mg PO DAILY 01/29/21 03/09/22 History Furosemide [Lasix] 20 mg PO BID 01/29/21 03/09/22 History Isosorbide Mononitrate ER [Imdur] 30 mg PO DAILY 01/29/21 03/09/22 History Metoprolol Succinate (ER) [Toprol 100 mg PO DAILY 01/29/21 03/09/22 History Xl] Nitroglycerin Sl Tabs [Nitrostat] 0.4 mg SUBLINGUAL Q5M PRN 01/29/21 03/09/22 History Oxybutynin Chloride [Oxybutynin 15 mg PO DAILY 01/29/21 03/09/22 History Chloride ER] Potassium Chloride [K-Tab ER] 20 meq PO DAILY 01/29/21 03/09/22 History Pravastatin Sodium 80 mg PO HS 01/29/21 03/09/22 History Biotin [Biotin Disolve] 5,000 mcg PO DAILY 03/09/22 03/09/22 History Famotidine [Pepcid] 40 mg PO BID 03/09/22 03/09/22 History Ferrous Sulfate [Feosol] 325 mg PO DAILY 03/09/22 03/09/22 History Hyoscyamine Sulfate [Hyoscyamine 0.125 mg SL AC-BID 03/09/22 03/09/22 History Sulfate SL] lisinopriL [Zestril] 5 mg PO DAILY 03/09/22 03/09/22 History Allergies Allergy/AdvReac Type Severity Reaction Status Date / Time Penicillins Allergy Unknown Rash/Hives, Verified 03/09/22 09:19 Swelling Physical Exam Vitals: Vital Signs Temp Pulse Resp BP Pulse Ox 03/09/22 12:01 98.2 F 64 16 128/56 95 03/09/22 10:12 97 16 144/82 03/09/22 09:08 75 16 139/70 03/09/22 07:40 97.0 F L 87 18 179/81 96 Intake and Output 03/08/22 03/09/22 03/09/22 22:59 06:59 14:59 Intake Total 9.545 Balance 9.545 Intake: Intake, IV Titration 9.545 Amount Heparin Sod,Pork in 0.45% 9.545 NaCl 25,000 unit In 0.45 % NaCl 1 250ml.bag @ 12 UNITS/KG/HR 9.09 mls/hr IV .Q24H [facility] Rx#: [id number] Other: Weight 75.75 kg Constitutional: No acute distress, conversant, pleasant Eyes:Anicteric sclerae, moist conjunctiva, no lid-lag, PERRLA, ENMT: Oropharynx clear, no erythema, exudates Neck: Supple, FROM, no masses, or JVD, No carotid bruits, No thyromegaly Lungs: Clear to auscultation, Clear to percussion, Normal respiratory effort, no accessory muscle use Cardiovascular: Heart regular in rate and rhythm, No murmurs, gallops, or rubs, No peripheral edema Abdominal: Soft, Nontender, no guarding, rebound or rigidity, Normoactive bowel sounds, No hepatomegaly, No splenomegaly, No palpable mass Skin: Normal temperature, tone, texture, turgor, no induration, No subcutaneous nodules, No rash, lesions, No ulcers Extremities: No digital cyanosis, No clubbing, Pedal pulses intact and symmetrical, Radial pulses intact and symmetrical, No calf tenderness Psychiatric: Alert and oriented to person, place and time, appropriate affect, intact judgement Neuro: Muscles Strength 5/5 in all 4 extremities, Sensation to light touch grossly present throughout, Cranial nerves II-XII grossly intact, no focal sensory deficits Results CBC & Chem 7: 03/09/22 08:20 03/09/22 08:20 Labs: Abnormal Lab Results - Last 24 Hours (Table) 03/09/22 03/09/22 03/09/22 Range/Units 08:20 08:20 08:20 Lymphocytes # 0.9 L (1.0-4.8) k/uL D-Dimer 1.19 H (<0.60) mg/L FEU BUN 49 H (7-17) mg/dL Creatinine 1.87 H (0.52-1.04) mg/dL Glucose 109 H (74-99) mg/dL Assessment and Plan Plan: Acute chest pain Unstable angina Cardiology evaluation Telemetry Heparin gtt Cycle troponins Echo Likely heart cath in am ABDOULAYE on CKD3 IV fluids Already seen by nephrology, received IV contrast for computed tomography scan, we'll closely monitor renal function Check UA Check ultrasound of the kidneys Hold BRENTON inhibitors Chronic History of hypertension Hyperlipidemia Stable Resume meds Admit to inpatient expected length of stay more than 2 midnights.
--- NOTE | 2022-03-09 13:49 | US ---
EXAMINATION TYPE: US kidneys/renal and bladder DATE OF EXAM: 03/09/2022 COMPARISON: NONE CLINICAL HISTORY: josey. ckd 4 EXAM MEASUREMENTS: Right Kidney: 9.9 x 4.6 x 3.9 cm Left Kidney: 10.2 x 5.2 x 4.2 cm Right Kidney: Anechoic area lower pole 3.4 x 2.7 x 2.5 cm. Left Kidney: No hydronephrosis or masses seen Bladder: wnl Bilateral Jets seen: Yes There is no evidence for hydronephrosis at this point in time. No nephrolithiasis is seen. No solid masses are identified. The urinary bladder is anechoic. Bilateral ureteral jets are seen. IMPRESSION: Simple cyst lower pole right kidney.
[2022-03-09] MEDS: NITROGLYCERIN SL TABS 0.4 MG TAB SUBLINGUAL PRN ×5 (15:50→20:10)
[2022-03-09] MEDS: HYOSCYAMINE SULFATE 0.125 MG TAB PO SCH (18:36)
[2022-03-09] MEDS: FAMOTIDINE 20 MG TAB PO SCH (20:00)
[2022-03-09] MEDS: PRAVASTATIN SODIUM 80 MG TAB PO SCH (20:00)
[2022-03-09] MEDS: NITROGLYCERIN-D5W PMX 50 MG in DEXTROSE/WATER 1 250ML.BAG IV SCH (20:14)
[2022-03-09] MEDS ORDERED: FAMOTIDINE 20 MG TAB PO SCH (21:00)
[2022-03-10] MEDS: NITROGLYCERIN OINT 1 INCH/GM PACKET TOPICAL SCH ×3 (05:23→21:26)
[2022-03-10] MEDS: CHOLECALCIFEROL 25 MCG (1000 IU) TABLET PO SCH (06:27)
[2022-03-10] MEDS: EZETIMIBE 10 MG TAB PO SCH (06:27)
[2022-03-10] MEDS: OXYBUTYNIN 15 MG TAB.ER.24 PO SCH (06:27)
[2022-03-10] MEDS: FERROUS SULFATE 325 MG TAB PO SCH (06:27)
[2022-03-10] MEDS ORDERED: HEPARIN SODIUM,PORCINE 2,500 UNIT in SODIUM CHLORIDE 0.9% 250 ML IRRIGATION PRN (07:00)
[2022-03-10] MEDS ORDERED: HEPARIN SODIUM,PORCINE 10,000 UNIT in SODIUM CHLORIDE 0.9% 1,000 ML IRRIGATION PRN (07:00)
[2022-03-10 08:20] VITALS: RESP 16
[2022-03-10] MEDS: METOPROLOL SUCCINATE (ER) 100 MG TAB.ER.24H PO SCH (08:46)
[2022-03-10] MEDS ORDERED: POTASSIUM CHLORIDE 20 MEQ PO SCH (09:00)
[2022-03-10] MEDS ORDERED: ASPIRIN 325 MG TAB PO SCH ×2 (09:00)
[2022-03-10 09:45] LABS: ALT 17 U/L (4-34); AST 35 U/L (14-36); African American GFR (CKD) 38 (>60 ml/min/1.73 sqM); Albumin 3.8 g/dL (3.5-5.0); Alkaline Phosphatase 70 U/L (38-126); Anion Gap 5 mmol/L; Basophils % (A) 1 %; Blood Urea Nitrogen 35 mg/dL (7-17); Calcium 8.7 mg/dL (8.4-10.2); Carbon Dioxide 28 mmol/L (22-30); Chloride 108 mmol/L (98-107); Eosinophils # (A) 0.2 k/uL (0-0.7); Eosinophils % (A) 4 %; Glucose 96 mg/dL (74-99); HCT 33.2 % (34.0-46.0); Lymphocytes # (A) 0.9 k/uL (1.0-4.8); Lymphocytes % (A) 18 %; MCH 30.2 pg (25.0-35.0); MCHC 33.3 g/dL (31.0-37.0); MCV 90.6 fL (80.0-100.0); Mean Platelet Volume 7.8; Monocytes # (A) 0.3 k/uL (0-1.0); Monocytes % (A) 7 %; Neutrophils # (A) 3.4 k/uL (1.3-7.7); Neutrophils % (A) 68 %; Non-African American GFR(CKD) 33 (>60 ml/min/1.73 sqM); Platelet Count 202 k/uL (150-450); Potassium 4.3 mmol/L (3.5-5.1); RBC 3.66 m/uL (3.80-5.40); RDW 13.4 % (11.5-15.5); Sodium 141 mmol/L (137-145); Total Bilirubin 0.5 mg/dL (0.2-1.3); Total Protein 6.6 g/dL (6.3-8.2); WBC 4.9 k/uL (3.8-10.6)
[2022-03-10] MEDS ORDERED: SODIUM CHLORIDE 0.9% 1,000 ML IV SCH (09:45)
--- NOTE | 2022-03-10 10:05 | P.PN ---
Subjective Progress Note Date: 03/10/22 Principal diagnosis: Chest pain Doing well, no further episodes of chest pain. No sob. No dizziness. Still currently on nitro gtt and heparin gtt. Objective - Vital Signs Vital signs: Vital Signs Temp 96.7 F L 03/10/22 08:47 Pulse 72 03/10/22 08:47 Resp 16 03/10/22 08:47 BP 133/94 03/10/22 08:47 Pulse Ox 94 L 03/10/22 08:47 FiO2 Intake & Output 03/09/22 03/10/22 03/10/22 18:59 06:59 18:59 Intake Total 9.545 215.39 127.563 Balance 9.545 215.39 127.563 Weight 75.75 kg Intake: IV 110 Invasive Line 1 10 Sodium Chloride 0.9% 1, 100 000 ml @ 100 mls/hr IV . Q10H [facility] Rx#:[id number] Intake, IV Titration 9.545 105.39 127.563 Amount Heparin Sod,Pork in 0.45% 9.545 84.84 127.563 NaCl 25,000 unit In 0.45 % NaCl 1 250ml.bag @ 12 UNITS/KG/HR 9.09 mls/hr IV .Q24H [facility] Rx#: [id number] Nitroglycerin-D5w Pmx 50 20.55 mg In Dextrose/Water 1 250ml.bag @ 30 MCG/MIN 9 mls/hr IV .Q24H [facility] Rx#: [id number] Oral 0 Other: Voiding Method Toilet Toilet # Voids 3 - Exam Constitutional: No acute distress, conversant, pleasant Eyes:Anicteric sclerae, moist conjunctiva, no lid-lag, PERRLA, ENMT: Oropharynx clear, no erythema, exudates Neck: Supple, FROM, no masses, or JVD, No carotid bruits, No thyromegaly Lungs: Clear to auscultation, Clear to percussion, Normal respiratory effort, no accessory muscle use Cardiovascular: Heart regular in rate and rhythm, No murmurs, gallops, or rubs, No peripheral edema Abdominal: Soft, Nontender, no guarding, rebound or rigidity, Normoactive bowel sounds, No hepatomegaly, No splenomegaly, No palpable mass Skin: Normal temperature, tone, texture, turgor, no induration, No subcutaneous nodules, No rash, lesions, No ulcers Extremities: No digital cyanosis, No clubbing, Pedal pulses intact and symmetrical, Radial pulses intact and symmetrical, No calf tenderness Psychiatric: Alert and oriented to person, place and time, appropriate affect, intact judgement Neuro: Muscles Strength 5/5 in all 4 extremities, Sensation to light touch анна sly present throughout, Cranial nerves II-XII grossly intact, no focal sensory deficits - Labs CBC & Chem 7: 03/10/22 09:24 03/10/22 09:24 Labs: Abnormal Lab Results - Last 24 Hours (Table) 03/09/22 03/09/22 03/10/22 Range/Units 17:10 19:19 09:24 RBC (3.80-5.40) m/uL Hgb (11.4-16.0) gm/dL Hct (34.0-46.0) % Lymphocytes # (1.0-4.8) k/uL APTT 49.8 H (22.0-30.0) sec Chloride 108 H (98-107) mmol/L BUN 35 H (7-17) mg/dL Creatinine 1.52 H (0.52-1.04) mg/dL Troponin I 0.161 H* (0.000-0.034) ng/mL 03/10/22 03/10/22 Range/Units 09:24 09:24 RBC 3.66 L (3.80-5.40) m/uL Hgb 11.0 L (11.4-16.0) gm/dL Hct 33.2 L (34.0-46.0) % Lymphocytes # 0.9 L (1.0-4.8) k/uL APTT 70.4 H (22.0-30.0) sec Chloride (98-107) mmol/L BUN (7-17) mg/dL Creatinine (0.52-1.04) mg/dL Troponin I (0.000-0.034) ng/mL Assessment and Plan Plan: Acute chest pain Unstable angina/NSTEMI Cardiology evaluation Telemetry Heparin and nitro gtt Troponin trending up Echo Heart cath scheduled for today ABDOULAYE on CKD3 Improved, continue IV fluids Already seen by nephrology, received IV contrast for computed tomography scan, we'll closely monitor renal function Ultrasound of the kidneys with no hydronephrosis Hold BRENTON inhibitors Chronic History of hypertension Hyperlipidemia Stable Resume meds Anticipated discharge: 1-2 days Dispo likely home
[2022-03-10] MEDS ORDERED: HYDROmorphone 0.5 MG/0.5 ML SYRINGE IVP ONE (10:35)
[2022-03-10] MEDS ORDERED: ONDANSETRON 4 MG/2 ML VIAL IVP ONE (10:35)
[2022-03-10] MEDS ORDERED: ONDANSETRON 4 MG/2 ML VIAL ONE (10:37)
[2022-03-10] MEDS: HEPARIN SOD,PORK IN 0.45% NACL 25,000 UNIT in 0.45% NACL 1 250ML.BAG IV SCH (10:39)
[2022-03-10] MEDS ORDERED: fentaNYL (PF) 50 MCG/ML 2 ML AMP ONE (10:41)
[2022-03-10] MEDS ORDERED: IV FLUID CONTINUATION 1,000 ML IV ONE ×2 (10:44→13:17)
[2022-03-10] MEDS: LIDOCAINE 1% INJ 10MG/ML (30 ML VIAL-PF) SQ ONE ×2 (10:44→11:10)
--- NOTE | 2022-03-10 10:44 | CA ---
Transthoracic Echo Report Name: Kenzie Kramer Age: 76 Gender: F : 1945 Exam Date: 03/10/2022 08:17 Exam Location: [place] [facility] Ht (in): 65 Wt (lb): 167 Ordering Physician: Johnna Doan Attending/Referring Phys: Anshul Morgan MD ([id number]) [employer]atch Plant Supervisor Zari Marsh RDCS Procedure CPT: Indications: LVF Cardiac Hx: Technical Quality: Fair Contrast 1: Total Dose (mL): Contrast 2: Total Dose (mL): MEASUREMENTS (Male / Female) Normal Values 2D ECHO LV Diastolic Diameter PLAX 5.0 cm 4.2 - 5.9 / 3.9 - 5.3 cm LV Systolic Diameter PLAX 3.1 cm IVS Diastolic Thickness 1.1 cm 0.6 - 1.0 / 0.6 - 0.9 cm LVPW Diastolic Thickness 1.1 cm 0.6 - 1.0 / 0.6 - 0.9 cm LV Relative Wall Thickness 0.4 RV Internal Dim ED PLAX 2.2 cm LA Systolic Diameter LX 4.3 cm 3.0 - 4.0 / 2.7 - 3.8 cm LV Diastolic Volume MOD 4C 59.2 cm??? LV Systolic Volume MOD 4C 27.9 cm??? LV Ejection Fraction MOD 4C 52.9 % LV Diastolic Length 4C 6.3 cm LV Systolic Length 4C 5.8 cm LV Diastolic Volume MOD 2C 82.5 cm??? LV Systolic Volume MOD 2C 44.4 cm??? LV Ejection Fraction MOD 2C 46.2 % LV Diastolic Length 2C 7.6 cm LV Systolic Length 2C 6.5 cm LA Volume 82.9 cm??? 18 - 58 / 22 - 52 cm??? M-MODE Aortic Root Diameter MM 3.2 cm AV Cusp Separation MM 2.3 cm DOPPLER AV Peak Velocity 210.6 cm/s AV Peak Gradient 17.7 mmHg AI Peak Velocity 426.3 cm/s AI Peak Gradient 72.7 mmHg AI Pressure Half Time 799.5 ms MV E' Velocity 5.2 cm/s TR Peak Velocity 326.9 cm/s TR Peak Gradient 42.7 mmHg Right Ventricular Systolic Press 46.0 mmHg FINDINGS Left Ventricle Left ventricular ejection fraction is estimated at 50-55 %. Left ventricular cavity size normal. Mildly increased septal wall thickness. Mildly increased posterior wall thickness. Right Ventricle Normal right ventricular size. Moderate pulmonary hypertension. Right Atrium Normal right atrial size. Left Atrium Mildly increased left atrial diameter. Severely increased left atrial volume. Mildly increased left atrial area. No evidence for an atrial septal defect. Mitral Valve Mitral valve thickened. Mitral annular calcification. Mild mitral regurgitation. Aortic Valve Trileaflet aortic valve. Focal thickening of the aortic valve cusps. Mild aortic regurgitation. Tricuspid Valve Structurally normal tricuspid valve. Mild tricuspid regurgitation. Pulmonic Valve Structurally normal pulmonic valve. Mild pulmonic regurgitation. Pericardium No pericardial effusion. Aorta Normal size aortic root and proximal ascending aorta. CONCLUSIONS Left ventricular size is normal. Ejection fractions in the 50% range with moderate pulmonary hypertension. Mild mitral and tricuspid insufficiency and mild aortic insufficiency. No pericardial effusion Previewed by: Dr. Sabina Cazares MD (Electronically Signed) Final Date: 10 March 2022 10:43
[2022-03-10] MEDS ORDERED: MIDAZOLAM 2 MG/2 ML VIAL IV ONE (10:50)
[2022-03-10] MEDS ORDERED: fentaNYL (PF) 50 MCG/ML 2 ML AMP IV ONE (10:50)
[2022-03-10] MEDS ORDERED: LIDOCAINE 1% INJ 10MG/ML (30 ML VIAL-PF) SQ ONE (10:50)
[2022-03-10] MEDS ORDERED: VERAPAMIL SYRINGE (5 MG/10 ML) INTRAARTER ONE (10:52)
--- NOTE | 2022-03-10 10:53 | P.PN ---
Subjective Patient is seen for follow-up for acute kidney injury. Patient was admitted to the hospital with complaints of chest pain. Serum creatinine was 1.8 on admission. Patient did receive IV fluids however, fluids were discontinued this morning. Serum creatinine has decreased to 1.5 mg/dL. Patient is scheduled for cardiac catheterization today. Patient has had good urine output. Objective - Vital Signs Vital signs: Vital Signs Temp 96.7 F L 03/10/22 08:47 Pulse 72 03/10/22 08:47 Resp 16 03/10/22 08:47 BP 133/94 03/10/22 08:47 Pulse Ox 94 L 03/10/22 08:47 FiO2 Intake & Output 03/09/22 03/10/22 03/10/22 18:59 06:59 18:59 Intake Total 9.545 215.39 127.563 Balance 9.545 215.39 127.563 Weight 75.75 kg Intake: IV 110 Invasive Line 1 10 Sodium Chloride 0.9% 1, 100 000 ml @ 100 mls/hr IV . Q10H [facility] Rx#:[id number] Intake, IV Titration 9.545 105.39 127.563 Amount Heparin Sod,Pork in 0.45% 9.545 84.84 127.563 NaCl 25,000 unit In 0.45 % NaCl 1 250ml.bag @ 12 UNITS/KG/HR 9.09 mls/hr IV .Q24H [facility] Rx#: [id number] Nitroglycerin-D5w Pmx 50 20.55 mg In Dextrose/Water 1 250ml.bag @ 30 MCG/MIN 9 mls/hr IV .Q24H [facility] Rx#: [id number] Oral 0 Other: Voiding Method Toilet Toilet # Voids 3 - Exam Awake, comfortable, in no acute distress Examination of the heart S1 and S2 Examination of the lungs bilateral breath sounds are heard Abdomen is soft nontender Examination lower extremity shows no evidence of edema SPECIAL EVENTS MANAGER exam grossly intact - Labs CBC & Chem 7: 03/10/22 09:24 03/10/22 09:24 Labs: Abnormal Lab Results - Last 24 Hours (Table) 03/09/22 03/09/22 03/10/22 Range/Units 17:10 19:19 09:24 RBC (3.80-5.40) m/uL Hgb (11.4-16.0) gm/dL Hct (34.0-46.0) % Lymphocytes # (1.0-4.8) k/uL APTT 49.8 H (22.0-30.0) sec Chloride 108 H (98-107) mmol/L BUN 35 H (7-17) mg/dL Creatinine 1.52 H (0.52-1.04) mg/dL Troponin I 0.161 H* (0.000-0.034) ng/mL 03/10/22 03/10/22 Range/Units 09:24 09:24 RBC 3.66 L (3.80-5.40) m/uL Hgb 11.0 L (11.4-16.0) gm/dL Hct 33.2 L (34.0-46.0) % Lymphocytes # 0.9 L (1.0-4.8) k/uL APTT 70.4 H (22.0-30.0) sec Chloride (98-107) mmol/L BUN (7-17) mg/dL Creatinine (0.52-1.04) mg/dL Troponin I (0.000-0.034) ng/mL Assessment and Plan Assessment: 1. Acute kidney injury, most likely prerenal. Rule out ATN. Check urine analysis, not sent yet. Ultrasound of the kidneys was unremarkable with no evidence of hydronephrosis. Status post CT angiogram on 03/09/2022 2. Chronic kidney disease NKF stage III with baseline creatinine about 1.3-1.4 mg/dL as of 07/13/2021. Etiology is likely nephrosclerosis. Previous UA on 04/20/2021 showed no evidence of proteinuria 3. Chest pain with negative troponin and CT angiogram. Going for cardiac catheterization this morning. 4. Hypertension with CK D stage III, currently controlled 5. Dyslipidemia 6. Simple cyst right kidney Plan: Check UA Reorder IV fluids. Patient is going for cardiac catheterization today. This will be patient's second exposure to IV contrast. Repeat labs in a.m. Avoid any other nephrotoxic agents Avoid hypotension.
[2022-03-10] MEDS ORDERED: HEPARIN SODIUM 1,000 UN/ML (10ML VL) ONE (10:55)
[2022-03-10] MEDS: HEPARIN SODIUM 1,000 UN/ML (10ML VL) IV ONE ×4 (10:58→12:02)
[2022-03-10] MEDS ORDERED: TICAGRELOR 90 MG TAB ONE (11:12)
[2022-03-10] MEDS ORDERED: TICAGRELOR 90 MG TAB PO ONE (11:14)
[2022-03-10] MEDS ORDERED: VERAPAMIL 2.5 MG/ML 2 ML AMP ONE (11:48)
[2022-03-10] MEDS ORDERED: IOPAMIDOL-370 100ML BTL INJ ONE ×2 (12:29→13:15)
[2022-03-10] MEDS ORDERED: ZOLPIDEM 5 MG TAB PO PRN (13:23)
[2022-03-10] MEDS ORDERED: ATROPINE SULFATE 0.1 MG/ML 10ML SYRINGE IV PRN (13:23)
[2022-03-10] MEDS ORDERED: MAG HYDROX/AL HYDROX/SIMETH 30 ML CUP PO PRN (13:23)
[2022-03-10] MEDS ORDERED: RX INFO: IV CONTRAST WAS GIVEN 1 EACH MISC MISCELLANE PRN (13:23)
[2022-03-10] MEDS: HYOSCYAMINE SULFATE 0.125 MG TAB PO SCH ×2 (13:53→19:07)
[2022-03-10 15:04] VITALS: BMI 27.8
[2022-03-10 15:17] LABS: Appearance,Urine Clear (Clear); Bacteria,Urine Rare /hpf; Bilirubin,Urine Negative (Negative); Blood,Urine Large (Negative); Color,Urine Light Yellow; Glucose,Urine (UA) Negative (Negative); Ketones,Urine Negative (Negative); Leukocyte Esterase,Urine Negative (Negative); Mucus,Urine Rare /hpf; Nitrite,Urine Negative (Negative); PH, Urine 5.5 (5.0-8.0); Protein,Urine Negative (Negative); RBC,Urine 1 /hpf (0-5); Specific Gravity,Urine 1.037 (1.001-1.035); Squamous Epithelial Cell,Urine 1 /hpf (0-4); Urobilinogen,Urine <2.0 mg/dL (<2.0); WBC,Urine 1 /hpf (0-5)
[2022-03-10] MEDS: ISOSORBIDE MONONITRATE ER 30 MG TAB.ER.24H PO SCH (15:17)
[2022-03-10 19:41] LABS: Chol/HDL Ratio 2.94 Ratio; LDL Cholesterol,Calculated 56.4 mg/dL (0.0-131.0); VLDL Calculation 14.92 mg/dL (5.00-40.00)
[2022-03-10] MEDS: NITROGLYCERIN-D5W PMX 50 MG in DEXTROSE/WATER 1 250ML.BAG IV SCH (21:26)
[2022-03-10] MEDS: TICAGRELOR 90 MG TAB PO SCH (21:35)
[2022-03-10] MEDS: FAMOTIDINE 20 MG TAB PO SCH (21:35)
[2022-03-10] MEDS: PRAVASTATIN SODIUM 80 MG TAB PO SCH (21:35)
--- NOTE | 2022-03-10 23:48 | P.PRCINT ---
Percutaneous Coronary Int. - Percutaneous Coronary Intervention Percutaneous Coronary Intervention: PROCEDURES PERFORMED: Left coronary angiography, PCI left main into proximal LAD with a 3.5 x 12mm Xience MARISELA, balloon angioplasty of circumflex with kissing balloon angioplasty circumflex and LAD INDICATION: NSTEMI with ongoing chest pain and dynamic EKG changes HPI: Patient is a pleasant 76 year old female who had been having chest pain and was found to have NSTEMI. Patient still having ongoing chest pain and diagnostic cath showed severe critical ostial LAD lesion with EKG changes. Therefore recommended to undergo urgent revascularization. Given ongoing chest pain, felt best to treat percutaneously. PROCEDURE: After the risks, benefits and alternatives of the above mentioned procedure explained in detail with the patient, informed consent was obtained. Patient had already been taken to the catheterization lab and prepped and draped in usual fashion. A 6-H[place] sheath was placed in the right radial artery using modified Seldinger technique. A 6Fr CLS 3.0 guide catheter was used to engage the RCA. Heparin was given for ACT > 250. A 0.014 BMW wire was advanced into the distal LAD. As expected patient did have some worsened chest pain with balloon however pain improved after balloon angioplasty of the lesion with a 3.0 x 12mm balloon. There was significant difficulty keeping CLS 3.0 engaged with wire coming out and catheter becoming disengaged. Therefore FL 3.0, FL 3.5 were also attempted however without better success. Therefore right femoral access was obtained with micropuncture and ultrasound guidance. A 6Fr sheath was placed in the right femoral artery. A 6Fr CLS 3.0 guide was used to engage the left main. A 0.014 BMW wire was advanced into the distal LAD. IVUS was performed which showed distal reference LAD 3.25 x 3.25 and proximal 4.25 x 4.0. There was heavy calcification of the proximal LAD. Next a 3.5 x 12mm Xience MARISELA was deployed from the short left main into the LAD. There did not appear to be much circumflex disease and felt may be able to provisional stent however there was some plaque shift into the circumflex. Therefore an additional 0.014 whisper wire was passed through the stent struts into the circumflex. Next balloon angioplasty was performed with a 2.0 NC balloon. Next kissing balloon angioplasty was performed with a 3.0 NC balloon in the cirumflex and a 4.0 x 12 NC balloon in the LAD. IVUS was performed which showed good stent apposition and sizing with residual 10% calcified plaque of the ostial LAD felt best treated medically. The wires were removed and finals angiograms were performed. Pre intervention there was 95% ostial LAD stenosis and FRACISCO 2-3 flow and post intervention there was <10% stenosis and FRACISCO 3 flow. The right radial sheath was removed and a TR band was placed with hemostasis achieved. A right femoral angiogram showed adequate anatomy for closure. The patient tolerated the procedure well. Patient was transported back to the post catheterization holding area in stable condition. Conscious Sedation: Patient was monitored under the direct supervision of vision of myself for conscious sedation using Versed and fentanyl for a total duration of 129 minutes HEMODYNAMICS: Aortic: 134/76 SELECTIVE CORONARY ARTERIOGRAPHY: LEFT MAIN: The left main is a large caliber vessel which is short and bifurcates into the LAD and circumflex. There is distal left main 20% stenosis. LEFT ANTERIOR DESCENDING CORONARY ARTERY: LAD is a large caliber vessel which wraps around to the apex. There is an ostial LAD 95% stenosis and otherwise mild luminal irregularities. LEFT CIRCUMFLEX CORONARY ARTERY: Left circumflex is a moderate caliber vessel with mild proximal circumflex 30% stenosis. RIGHT CORONARY ARTERY: The right coronary artery was not imaged, see separate report. FINAL IMPRESSION: 1. CAD as described above including left main 20% stenosis, ostial LAD 95%, proximal circumflex 30% 2. S/p PCI left main into proximal LAD with a 3.5 x 12mm Xience MARISELA, balloon angioplasty of circumflex with kissing balloon angioplasty circumflex and LAD PLAN: 1. Aggressive risk factor modification per most recent ACC/AHA guidelines. 2. Continue dual antiplatelets for 12 months with aspirin and Brillinta
[2022-03-11] MEDS: HYOSCYAMINE SULFATE 0.125 MG TAB PO SCH ×2 (06:39→12:59)
[2022-03-11 07:49] LABS: Potassium 3.4 mmol/L (3.5-5.1)
[2022-03-11 07:55] LABS: Basophils % (A) 0 %; Eosinophils # (A) 0.2 k/uL (0-0.7); Eosinophils % (A) 4 %; HCT 25.6 % (34.0-46.0); Lymphocytes # (A) 0.6 k/uL (1.0-4.8); Lymphocytes % (A) 12 %; MCH 29.9 pg (25.0-35.0); MCHC 32.8 g/dL (31.0-37.0); MCV 91.3 fL (80.0-100.0); Mean Platelet Volume 8.3; Monocytes # (A) 0.4 k/uL (0-1.0); Monocytes % (A) 7 %; Neutrophils # (A) 3.7 k/uL (1.3-7.7); Neutrophils % (A) 75 %; Platelet Count 164 k/uL (150-450); RDW 13.9 % (11.5-15.5)
[2022-03-11 08:00] LABS: Calcium 6.3 mg/dL (8.4-10.2)
[2022-03-11 08:01] LABS: HGB 8.4 gm/dL (11.4-16.0)
[2022-03-11] MEDS ORDERED: Potassium Replacement Protocol 1 EACH MISC MISCELLANE PRN (08:47)
[2022-03-11] MEDS: POTASSIUM CHLORIDE ER 20 MEQ TAB.ER PO SCH (08:56)
[2022-03-11] MEDS: EZETIMIBE 10 MG TAB PO SCH (08:57)
[2022-03-11] MEDS: METOPROLOL SUCCINATE (ER) 100 MG TAB.ER.24H PO SCH (08:57)
[2022-03-11] MEDS: FERROUS SULFATE 325 MG TAB PO SCH (08:57)
[2022-03-11] MEDS: TICAGRELOR 90 MG TAB PO SCH (08:57)
[2022-03-11] MEDS: OXYBUTYNIN 15 MG TAB.ER.24 PO SCH (08:57)
[2022-03-11] MEDS: CHOLECALCIFEROL 25 MCG (1000 IU) TABLET PO SCH (08:57)
[2022-03-11] MEDS: ISOSORBIDE MONONITRATE ER 30 MG TAB.ER.24H PO SCH (08:57)
[2022-03-11] MEDS ORDERED: ASPIRIN 81 MG PO SCH (09:00)
[2022-03-11] MEDS ORDERED: lisinopriL 10 MG TAB PO SCH (09:00)
[2022-03-11 09:48] LABS: Calcium 7.9 mg/dL (8.4-10.2); Potassium 4.5 mmol/L (3.5-5.1)
[2022-03-11 11:17] VITALS: BP 146/65; PULSE 68; TEMP 97.6
--- NOTE | 2022-03-11 11:44 | P.DS ---
Providers Date of admission: 03/09/22 09:47 Expected date of discharge: 03/11/22 Attending physician: Isa Graham MD Consults: 03/09/22 09:47 Consult Physician Urgent Consulting Provider: Carline Toth Consult Reason/Comments: Unstable angina, depressed ST segments Do you want consulting provider notified?: Already Contacted 03/09/22 10:37 Consult Physician Urgent Consulting Provider: Melanie Davis Consult Reason/Comments: Renal failure who received contrast Do you want consulting provider notified?: Yes 03/10/22 13:24 Consult Physician Routine Consulting Provider: Carline Toth Consult Reason/Comments: Post Interventional Patient Do you want consulting provider notified?: Already Contacted Primary care physician: [facility] Course: 76-year-old female with past medical history significant for high blood pressure, high cholesterol, angina, smoking history but quit 20 years ago and strong family history for coronary artery disease and heart attacks. She presented to the emergency department complaining of chest pain intermittently over the last 2 weeks. It is associated with shortness of breath, nausea vomiting. No diaphoresis. No fevers or chills, no recent illness. No heart palpitation. Pain is not necessarily exertional, it happened last night and she is not sure if it is related to her GERD or her heart. Patient states this morning the difference was the pain radiated to her back. The chest discomfort felt like a heavy sensation but when it radiated to the back it felt like a sharp pain. She said that years ago she had abnormal EKG, and heart catheterization subsequently which showed coronary artery disease but did not have any stents or angioplasty. No abdominal pain, diarrhea. Patient denies any swelling to the legs or calf tenderness. Patient denies any lightheadedness or dizziness. In the emergency department vital signs are normal, EKG showed ST depression in V1 through V5 that is new compared to an old EKG. Labs showed creatinine 1.87, troponin negative. Rest of exam is okay. CT angiogram of the chest showed no aortic aneurysm, dissection or hematoma, no PE, mild emphysema as well as 2.1 cm right para esophageal lymph node versus vascular ectasia, follow-up CT in 3 months is recommended. Case was discussed with cardiology, patient was subsequently started on heparin drip and was admitted to the hospital for further evaluation and management. She was found to have ABDOULAYE on CKD3, was treated with IV fluids, was seen by nephrology, this was sec to IV contrast she got for computed tomography scan. Had ultrasound of the kidneys with no hydronephrosis. Cr improved on the day of discharge. Troponin trended up after the admission, she was continued on heparin and nitro gtt was started as well. She was seen by cardiology, had a heart cath that showed CAD including left main 20% stenosis, ostial LAD 95%, proximal circumflex 30%, had PCI left main into proximal LAD with a MARISELA, balloon angioplasty of circumflex and LAD. Today she is feeling much better, she was cleared by cardiology for discharge. Patient was seen and examined [id number] on the day of discharge 03/11 Time for discharge 35 minutes. Plan - Discharge Summary Discharge Rx Participant: No New Discharge Prescriptions: New Ticagrelor [Brilinta] 90 mg PO BID 30 Days #60 tab Continue Ezetimibe [Zetia] 10 mg PO DAILY Nitroglycerin Sl Tabs [Nitrostat] 0.4 mg SUBLINGUAL Q5M PRN PRN Reason: Chest Pain Cholecalciferol [Vitamin D3 (25 Mcg = 1000 Iu)] 100 mcg PO DAILY Famotidine [Pepcid] 40 mg PO BID Isosorbide Mononitrate ER [Imdur] 30 mg PO DAILY Furosemide [Lasix] 20 mg PO BID Pravastatin Sodium 80 mg PO HS Potassium Chloride [K-Tab ER] 20 meq PO DAILY Oxybutynin Chloride [Oxybutynin Chloride ER] 15 mg PO DAILY Metoprolol Succinate (ER) [Toprol XL] 100 mg PO DAILY Aspirin EC [Ecotrin] 325 mg PO DAILY Ferrous Sulfate [Iron (65 MG Elemental)] 325 mg PO DAILY Biotin [Biotin Disolve] 5,000 mcg PO DAILY lisinopriL [Zestril] 5 mg PO DAILY Hyoscyamine Sulfate [Hyoscyamine Sulfate SL] 0.125 mg SL AC-BID Discharge Medication List Aspirin EC [Ecotrin] 325 mg PO DAILY 01/29/21 [History] Cholecalciferol [Vitamin D3 (25 Mcg = 1000 Iu)] 100 mcg PO DAILY 01/29/21 [History] Ezetimibe [Zetia] 10 mg PO DAILY 01/29/21 [History] Furosemide [Lasix] 20 mg PO BID 01/29/21 [History] Isosorbide Mononitrate ER [Imdur] 30 mg PO DAILY 01/29/21 [History] Metoprolol Succinate (ER) [Toprol XL] 100 mg PO DAILY 01/29/21 [History] Nitroglycerin Sl Tabs [Nitrostat] 0.4 mg SUBLINGUAL Q5M PRN 01/29/21 [History] Oxybutynin Chloride [Oxybutynin Chloride ER] 15 mg PO DAILY 01/29/21 [History] Potassium Chloride [K-Tab ER] 20 meq PO DAILY 01/29/21 [History] Pravastatin Sodium 80 mg PO HS 01/29/21 [History] Biotin [Biotin Disolve] 5,000 mcg PO DAILY 03/09/22 [History] Famotidine [Pepcid] 40 mg PO BID 03/09/22 [History] Ferrous Sulfate [Iron (65 MG Elemental)] 325 mg PO DAILY 03/09/22 [History] Hyoscyamine Sulfate [Hyoscyamine Sulfate SL] 0.125 mg SL AC-BID 03/09/22 [History] lisinopriL [Zestril] 5 mg PO DAILY 03/09/22 [History] Ticagrelor [Brilinta] 90 mg PO BID 30 Days #60 tab 03/11/22 [Rx] Follow up Appointment(s)/Referral(s): Ravindra Ravi MD [Primary Care Provider] - 1-2 days
--- NOTE | 2022-03-11 15:42 | PN ---
PROGRESS NOTE SUBJECTIVE: A 76-year-old lady, who was admitted to hospital with unstable angina, had mild troponin elevation, underwent cardiac catheterization by me that showed severe ostial LAD stenosis, and she was stented yesterday successfully. She has done well and is currently free of symptoms, ambulating without any problems. She is on dual- antiplatelet therapy. Her creatinine has actually improved since admission. Her hemoglobin had dropped, but she does not have any evidence of bleeding anywhere. It seems dilutional. Her BUN was 40, and you know, we brought it down to 20. She certainly needs evaluation for anemia, but hopefully, this can be done in the outpatient setting. This morning, the patient is ambulating well without any problems. OBJECTIVE: GENERAL: Comfortable at rest. VITAL SIGNS: Stable. NECK: There is no jugular venous distention. CHEST: Reveals good air entry bilaterally. HEART: Reveals first and second heart sounds. No gallop. No murmur. ABDOMEN: Soft. EXTREMITIES: Did not reveal any edema. Peripheral pulses are felt. Right radial artery access site appears normal. ASSESSMENT AND PLAN: Unstable angina, status post catheterization and angioplasty of the left anterior descending. PLAN: The patient is doing well. She will continue current medications. Stable for discharge. Follow up with me in 3 weeks' time. MMODL / IJN: [id number] /
--- NOTE | 2022-03-11 16:51 | P.PN ---
Subjective Patient is seen for follow-up for acute kidney injury. Patient was admitted to the hospital with complaints of chest pain. Serum creatinine had decreased to 1.09. Status post cardiac catheterization yesterday with coronary stent placement. No significant complaints today Patient states she has been voiding well. Plans for discharge today. Objective - Vital Signs Vital signs: Vital Signs Temp 97.6 F 03/11/22 11:14 Pulse 68 03/11/22 11:14 Resp 16 03/11/22 11:14 BP 146/65 03/11/22 11:14 Pulse Ox 97 03/11/22 11:14 FiO2 Intake & Output 03/10/22 03/11/22 03/11/22 18:59 06:59 18:59 Intake Total 1167.348 995 3006 Output Total 042 628 3080 Balance 767.759 267 4357 Weight 75.75 kg Intake: IV 396 259 5803 Invasive Line 2 10 10 Sodium Chloride 0.9% 1, 3 000 ml @ 100 mls/hr IV . Q10H [facility] Rx#:[id number] Sodium Chloride 0.9% 1, 650 2060 000 ml @ 130 mls/hr IV . Q7H[facility] Rx#:[id number] Intake, IV Titration 127.563 Amount Heparin Sod,Pork in 0.45% 127.563 NaCl 25,000 unit In 0.45 % NaCl 1 250ml.bag @ 12 UNITS/KG/HR 9.09 mls/hr IV .Q24H [facility] Rx#: [id number] Oral 240 358 Output: Urine 968 640 7968 Other: Voiding Method Toilet Toilet Toilet - Exam Awake, comfortable, in no acute distress Examination of the heart S1 and S2 Examination of the lungs bilateral breath sounds are heard Abdomen is soft nontender Examination lower extremity shows no evidence of edema [employer]END[employer] exam grossly intact - Labs CBC & Chem 7: 03/11/22 06:22 03/11/22 09:21 Labs: Abnormal Lab Results - Last 24 Hours (Table) 03/10/22 03/11/22 03/11/22 Range/Units 09:24 06:22 06:22 RBC 2.80 L (3.80-5.40) m/uL Hgb 8.4 L D (11.4-16.0) gm/dL Hct 25.6 L (34.0-46.0) % Lymphocytes # 0.6 L (1.0-4.8) k/uL Potassium 3.4 L (3.5-5.1) mmol/L Chloride 118 H (98-107) mmol/L Carbon Dioxide 21 L (22-30) mmol/L BUN 20 H (7-17) mg/dL Creatinine 1.09 H (0.52-1.04) mg/dL Glucose 73 L (74-99) mg/dL Calcium 6.3 L* (8.4-10.2) mg/dL HDL Cholesterol 36.70 L (40.00-60.00) mg/dL 03/11/22 Range/Units 09:21 RBC (3.80-5.40) m/uL Hgb (11.4-16.0) gm/dL Hct (34.0-46.0) % Lymphocytes # (1.0-4.8) k/uL Potassium (3.5-5.1) mmol/L Chloride 112 H (98-107) mmol/L Carbon Dioxide (22-30) mmol/L BUN 21 H (7-17) mg/dL Creatinine 1.36 H (0.52-1.04) mg/dL Glucose 100 H (74-99) mg/dL Calcium 7.9 L (8.4-10.2) mg/dL HDL Cholesterol (40.00-60.00) mg/dL Assessment and Plan Assessment: 1. Acute kidney injury, most likely prerenal. Rule out ATN. Check urine analysis, not sent yet. Ultrasound of the kidneys was unremarkable with no evidence of hydronephrosis. Status post CT angiogram on 03/09/2022 2. Chronic kidney disease NKF stage III with baseline creatinine about 1.3-1.4 mg/dL as of 07/13/2021. Etiology is likely nephrosclerosis. Previous UA on 04/20/2021 showed no evidence of proteinuria 3. Chest pain with negative troponin and CT angiogram. Status post cardiac cath and coronary stent placement. 4. Hypertension with CK D stage III, currently controlled 5. Dyslipidemia 6. Simple cyst right kidney Plan: Stable for discharge from nephrology standpoint Follow-up in the office in 1-2 weeks.
--- NOTE | 2022-03-14 10:44 | CDI ---
Documentation Clarification Form Date: 03/14/2022 10:26:00 AM From: Cata Romo Admit Date: 03/09/2022 09:47:00 AM Patient Name: Kenzie Kramer Visit Number: [id number] Discharge Date: 03/11/2022 01:31:00 PM ATTENTION: The Clinical Documentation Specialists (CDI) and [facility] Coding Staff appreciate your assistance in clarifying documentation. Please respond to the clarification below the line at the bottom and electronically sign. The CDI & [facility] Coding staff will review the response and follow-up if needed. Please note: Queries are made part of the Legal Health Record. If you have any questions, please contact the author of this message via ITS. Dr. Melanie Davis Acute Renal Injury most likely prerenal, rule out ATN is in your consult and PN's. Please clarify if patient had ATN or was it ruled out. History/Risk Factors: CKD 3, CAD angina, status post CT angiogram 03/09 Clinical Indicators: Patients baseline/prior BUN/CR/GFR: baseline Creat as of 07/13/2021 1.3- 1.4 Current BUN/Cr/GFR: BUN 49, Creat 1.87, GFR 26 Treatment: IV fluids urine analysis, ultrasound of kidneys, repeat labs, Hold Wade Inhibitors Please clarify if patient had ATN or was that ruled out. [ ] Acute Renal Failure ATN [ ] Acute Renal Failure ATN ruled out [ ] Other, please specify [ ] Unable to determine ATN secondary to IV contrast MTDD
--- NOTE | 2022-03-22 12:16 | CC ---
CARDIAC CATHETERIZATION REPORT INDICATION: Acute [id number] elevation FL. PROCEDURE NOTE: After obtaining informed consent, left heart catheterization and coronary angiogram were performed via the right radial artery. The right coronary artery was engaged using a JR4 right Candice catheter and the left coronary artery was engaged using a 6- Swedish JL 3.5 catheter. A pigtail was used to obtain left ventricular end-diastolic pressures. I obtained right radial artery access with Seldinger technique, and a 6-Swedish sheath was placed. Catheters and wires were manipulated into the ascending aorta under fluoroscopic guidance. The patient received intravenous heparin and 5 mg of verapamil per protocol. The patient received moderate conscious sedation. Total sedation time was 19 minutes. FINDINGS: 1. Hemodynamics: Left ventricular end-diastolic pressure is 22 mm. There is no significant gradient across the aortic valve. 2. Left ventriculogram: Left ventriculogram is not performed. 3. Angiographic data: a.Right coronary artery shows mild calcification without significant focal obstructive disease. b.Left main coronary artery appears calcified, but is free of significant disease. Ostial portion of the LAD including the proximal LAD shows a 95% to 99% focal stenosis. Circumflex coronary artery shows mild nonobstructive disease. CONCLUSION: Severe 95% stenosis involving the proximal LAD. PLAN: The patient will undergo angioplasty of the same. MMODL / IJN: [id number] /
== END 2022-03-11 13:31 | disposition home or self-care (01) | DRG 246 ==
LOC: EC 07:39 → 3SCARD 09:47
PROVIDERS: ADMIT Family Medicine; ATTEND Family Medicine
PROC: 027034Z Dilation of Coronary Artery, One Artery with Drug-eluting Intraluminal Device, Percutaneous Approach (ICD-10-PCS; principal; 2022-03-10 10:30)
PROC: B2111ZZ Fluoroscopy of Multiple Coronary Arteries using Low Osmolar Contrast (ICD-10-PCS; principal; 2022-03-10 10:30)
PROC: 4A023N7 Measurement of Cardiac Sampling and Pressure, Left Heart, Percutaneous Approach (ICD-10-PCS; principal; 2022-03-10 10:30)
DX: I25.110 Atherosclerotic heart disease of native coronary artery with unstable angina pectoris (principal); N17.0 Acute kidney failure with tubular necrosis; I24.8 Other forms of acute ischemic heart disease; E78.00 Pure hypercholesterolemia, unspecified; I12.9 Hypertensive chronic kidney disease with stage 1 through stage 4 chronic kidney disease, or unspecified chronic kidney disease; N18.30 Chronic kidney disease, stage 3 unspecified; Z79.82 Long term (current) use of aspirin; Z79.899 Other long term (current) drug therapy; Z87.891 Personal history of nicotine dependence; J43.9 Emphysema, unspecified; R79.1 Abnormal coagulation profile; K21.9 Gastro-esophageal reflux disease without esophagitis; Z71.3 Dietary counseling and surveillance; Z88.0 Allergy status to penicillin; T50.8X1A Poisoning by diagnostic agents, accidental (unintentional), initial encounter; N14.4 Toxic nephropathy, not elsewhere classified
CPT/HCPCS: 36415; 71046; 71275; 74174; 76770; 80048; 80053; 80061; 81001; 82330; 83735; 84484; 85025; 85379; 85610; 85730; 92978; 93005; 93306; 93458; 94760; 96365; 96366; 96375; 96376; 99291

== ENCOUNTER 2022-03-11 19:30 | Observation (INO) | payer MEDICARE ==
--- NOTE | 2022-03-11 23:07 | ED ---
Recheck HPI - General Chief Complaint: Chest Pain Stated Complaint: post surgery stent/return Time Seen by Provider: 03/11/22 23:06 Source: patient, RN notes reviewed, old records reviewed Mode of arrival: ambulatory Limitations: no limitations - History of Present Illness Initial Comments: This is a 76-year-old female to the emergency department for evaluation presented today for evaluation of an uneasy feeling lowering her chest and some heaviness prior to arrival. Patient recently had heart catheterization with stent placement earlier in the day felt well all history of chronic kidney disease did receive a diet bloated. Patient has no shortness of breath no sweating mild lower extremity edema. Has started on new medication which she did take as directed MD Complaint: other (Chest pain following heart catheterization) -: hour(s) Returns Today for: persistent/worsening pain related to initial visit Symptoms Since Prior Visit: worsening pain Associated Symptoms: shortness of breath, nausea Treatments Prior to Arrival: other (0) - Related Data Home Medications Medication Instructions Recorded Confirmed Aspirin EC [Ecotrin] 325 mg PO DAILY 01/29/21 03/09/22 Cholecalciferol [Vitamin D3 (25 100 mcg PO DAILY 01/29/21 03/09/22 Mcg = 1000 Iu)] Ezetimibe [Zetia] 10 mg PO DAILY 01/29/21 03/09/22 Furosemide [Lasix] 20 mg PO BID 01/29/21 03/09/22 Isosorbide Mononitrate ER [Imdur] 30 mg PO DAILY 01/29/21 03/09/22 Metoprolol Succinate (ER) [Toprol 100 mg PO DAILY 01/29/21 03/09/22 XL] Nitroglycerin Sl Tabs [Nitrostat] 0.4 mg SUBLINGUAL Q5M PRN 01/29/21 03/09/22 Oxybutynin Chloride [Oxybutynin 15 mg PO DAILY 01/29/21 03/09/22 Chloride ER] Potassium Chloride [K-Tab ER] 20 meq PO DAILY 01/29/21 03/09/22 Pravastatin Sodium 80 mg PO HS 01/29/21 03/09/22 Biotin [Biotin Disolve] 5,000 mcg PO DAILY 03/09/22 03/09/22 Famotidine [Pepcid] 40 mg PO BID 03/09/22 03/09/22 Ferrous Sulfate [Iron (65 MG 325 mg PO DAILY 03/09/22 03/09/22 Elemental)] Hyoscyamine Sulfate [Hyoscyamine 0.125 mg SL AC-BID 03/09/22 03/09/22 Sulfate SL] lisinopriL [Zestril] 5 mg PO DAILY 03/09/22 03/09/22 Previous Rx's Medication Instructions Recorded Ticagrelor [Brilinta] 90 mg PO BID 30 Days #60 tab 03/11/22 Allergies Allergy/AdvReac Type Severity Reaction Status Date / Time Penicillins Allergy Unknown Rash/Hives, Verified 03/11/22 19:37 Swelling Review of Systems ROS Statement: Those systems with pertinent positive or pertinent negative responses have been documented in the HPI. ROS Other: All systems not noted in ROS Statement are negative. Past Medical History Past Medical History: Chest Pain / Angina, GERD/Reflux, Hyperlipidemia, Hyp ertension, Renal Disease Additional Past Medical History / Comment(s): stage 4 kidney disease History of Any Multi-Drug Resistant Organisms: None Reported Past Surgical History: No Surgical Hx Reported, Heart Catheterization, Heart Catheterization With Stent Past Anesthesia/Blood Transfusion Reactions: No Reported Reaction Past Psychological History: No Psychological Hx Reported Smoking Status: Former smoker Past Alcohol Use History: Rare Past Drug Use History: None Reported - Past Family History Mother Family Medical History: Cancer Father Family Medical History: Cancer Brother(s) Family Medical History: Cancer Sister(s) Family Medical History: Cancer General Exam Limitations: no limitations General appearance: anxious Head exam: Present: atraumatic, normocephalic, normal inspection Eye exam: Present: normal appearance, PERRL, EOMI. Absent: scleral icterus, conjunctival injection, periorbital swelling ENT exam: Present: normal exam, mucous membranes moist Neck exam: Present: normal inspection. Absent: tenderness, meningismus, lymphadenopathy Respiratory exam: Present: normal lung sounds bilaterally. Absent: respiratory distress, wheezes, rales, rhonchi, stridor Cardiovascular Exam: Present: regular rate, normal rhythm, normal heart sounds. Absent: systolic murmur, diastolic murmur, rubs, gallop, clicks GI/Abdominal exam: Present: soft, normal bowel sounds. Absent: distended, tenderness, guarding, rebound, rigid Extremities exam: Present: normal inspection, full ROM, normal capillary refill. Absent: tenderness, pedal edema, joint swelling, calf tenderness Back exam: Present: normal inspection Neurological exam: Present: alert, oriented X3, CN II-XII intact Psychiatric exam: Present: normal affect, normal mood Skin exam: Present: warm, dry, intact, normal color. Absent: rash Course Vital Signs 03/11/22 03/11/22 19:34 23:36 Temperature 97.9 F Pulse Rate 98 80 Pulse Rate [ 80 Apical] Respiratory 18 16 Rate Blood Pressure 123/83 175/78 O2 Sat by Pulse 96 98 Oximetry - Reevaluation(s) Reevaluation #1: 03/12/22 00:03 Medical record is reviewed Reevaluation #2: 03/12/22 00:03 Patient informed results and questions answered Reevaluation #3: 03/12/22 00:03 No significant change in symptoms here in the ER - Consultations Consultation #1: Spoke with sound physicians who agree to admit this patient Medical Decision Making - Medical Decision Making 76 female DF for evaluation presents today for evaluation of heaviness on the chest and fluttering over heart patient has recent heart catheterization will admit for cardiac observation - Lab Data Result diagrams: 03/11/22 19:41 Lab Results 03/11/22 Range/Units 19:41 WBC 7.2 (3.8-10.6) k/uL RBC 3.49 L (3.80-5.40) m/uL Hgb 10.6 L (11.4-16.0) gm/dL Hct 31.1 L (34.0-46.0) % MCV 89.3 (80.0-100.0) fL MCH 30.3 (25.0-35.0) pg MCHC 33.9 (31.0-37.0) g/dL RDW 13.6 (11.5-15.5) % Plt Count 187 (150-450) k/uL MPV 7.7 Neutrophils % 72 % Lymphocytes % 16 % Monocytes % 6 % Eosinophils % 4 % Basophils % 0 % Neutrophils # 5.1 (1.3-7.7) k/uL Lymphocytes # 1.1 (1.0-4.8) k/uL Monocytes # 0.4 (0-1.0) k/uL Eosinophils # 0.3 (0-0.7) k/uL Basophils # 0.0 (0-0.2) k/uL - Radiology Data Radiology results: report reviewed (Chest x-rays negative for acute disease), image reviewed Critical Care Time Critical Care Time: Yes Total Critical Care Time: 31 Disposition Clinical Impression: Unstable angina, Renal insufficiency, Atypical chest pain, Chest pain Disposition: ADMITTED IP TO THIS [facility] Condition: Fair Is patient prescribed a controlled substance at d/c from ED?: No Referrals: Ravindra Ravi MD [Primary Care Provider] - 1-2 days Time of Disposition: 00:05
--- NOTE | 2022-03-11 23:26 | XR ---
EXAMINATION TYPE: XR chest 1V portable DATE OF EXAM: 03/11/2022 COMPARISON: 03/09/2022 HISTORY: Chest pain TECHNIQUE: Single view FINDINGS: There is mild blunting right costophrenic angle. Heart size is normal. No heart failure. Th oracic aorta is atheromatous. Bony thorax is intact IMPRESSION: There is some pleural diaphragmatic scarring lateral right lung base without change. Norm al heart.
[2022-03-11 23:45] LABS: Basophils % (A) 0 %; Eosinophils # (A) 0.3 k/uL (0-0.7); Eosinophils % (A) 4 %; HCT 31.1 % (34.0-46.0); HGB 10.6 gm/dL (11.4-16.0); Lymphocytes # (A) 1.1 k/uL (1.0-4.8); Lymphocytes % (A) 16 %; MCH 30.3 pg (25.0-35.0); MCHC 33.9 g/dL (31.0-37.0); MCV 89.3 fL (80.0-100.0); Mean Platelet Volume 7.7; Monocytes # (A) 0.4 k/uL (0-1.0); Monocytes % (A) 6 %; Neutrophils # (A) 5.1 k/uL (1.3-7.7); Neutrophils % (A) 72 %; Platelet Count 187 k/uL (150-450); RBC 3.49 m/uL (3.80-5.40); RDW 13.6 % (11.5-15.5); WBC 7.2 k/uL (3.8-10.6)
[2022-03-12] MEDS ORDERED: NALOXONE 0.4 MG/ML 1 ML VIAL IV PRN (00:01)
[2022-03-12] MEDS ORDERED: ONDANSETRON 4 MG/2 ML VIAL IVP PRN (00:01)
[2022-03-12] MEDS ORDERED: MORPHINE SULFATE 4 MG/ML SYRINGE IV PRN (00:01)
[2022-03-12 00:10] LABS: Albumin 3.8 g/dL (3.5-5.0); Calcium 8.5 mg/dL (8.4-10.2); Magnesium 2.1 mg/dL (1.6-2.3); Potassium 4.5 mmol/L (3.5-5.1); Total Bilirubin 0.4 mg/dL (0.2-1.3); Total Protein 6.3 g/dL (6.3-8.2)
[2022-03-12 00:11] LABS: INR 0.9 (<1.2)
[2022-03-12] MEDS: SODIUM CHLORIDE 0.9% 1,000 ML IV SCH ×2 (00:18→23:22)
[2022-03-12] MEDS ORDERED: TICAGRELOR 90 MG TAB PO STA (00:53)
[2022-03-12] MEDS: POLYMYXIN B-TRIMETHOPRIM SULF (10,000-1) OPHTH DROPS 10 ML BTL LEFT EYE SCH ×5 (02:01→23:18)
[2022-03-12] MEDS ORDERED: HEPARIN SODIUM 1,000 UN/ML (10ML VL) IV ONE (02:54)
[2022-03-12] MEDS ORDERED: HEPARIN SODIUM 1,000 UN/ML (10ML VL) IV PRN (02:54)
[2022-03-12] MEDS ORDERED: HEPARIN SOD,PORK IN 0.45% NACL 25,000 UNIT in 0.45% NACL 1 250ML.BAG IV SCH (03:00)
--- NOTE | 2022-03-12 03:02 | P.HPIM ---
History of Present Illness H&P Date: 03/12/22 The patient is a 76-year-old female with a PMH of hypertension, hyperlipidemia, coronary artery disease status post PCI to LAD with MARISELA on 03/10 via right radial approach, discharged home earlier today who now presented to the emergency room with complaints of chest pain, palpitations, and nausea. The patient reports that her symptoms started this evening at around 5 PM suddenly, with 10 out of 10 right-sided chest discomfort with radiation up to her jaw, intermittent, lasting for up to 5 minutes at a time occurring every 30 minutes. The pain was nonpleuritic with no alleviating or exacerbating features. She reported associated nausea and palpitations. Denied experiencing lower extremity swelling or pain. Chest x-ray was unremarkable. Laboratory evaluation was remarkable for troponin 1.72, creatinine 1.20, and hemoglobin 10.6. EKG showed A. fib with RVR at 100 bpm with T-wave inversion in leads V1 and V2. Review of systems: Pertinent positives and negatives as discussed in HPI, a complete review of systems was performed and all other systems are negative. Physical examination: General: non toxic, no distress, appears at stated age, obese Derm: no unusual rashes/lesions, warm Head: atraumatic, normocephalic, symmetric Eyes: EOMI, no lid lag, anicteric sclera, pupils equal round reactive to light ENT: Nose and ears atraumatic Neck: No cervical lymphadenopathy, trachea midline, supple Mouth: no lip lesion, mucus membranes moist Cardiovascular: S1S2 reg, no murmur, positive dorsalis pedis pulse bilateral, no edema Lungs: CTA bilateral, no rhonchi, no rales, no accessory muscle use Abdominal: soft, nontender to palpation, no guarding Ext: muscle strength 5 out of 5 in all 4 extremities grossly, no gross muscle atrophy, no contractures, Neuro: CN II-XI grossly intact, no gross focal neuro deficits Psych: Alert, oriented, appropriate affect Assessment/plan Non-ST elevation WA -Case discussed by ED physician with cardiology sap basis consultant who recommended heparin infusion -Continue with Brillinta -C/w Statin -Cardiac monitoring -Trend troponin -Cardiology consulted Chronic kidney disease, at baseline Chronic conditions: Hypertension, hyperlipidemia -Continue with home meds DVT prophylaxis -Heparin infusion The patient is admitted with an anticipated less than 2 midnight stay for evaluation of NSTEMI CODE STATUS: Full Code Discussed with: Patient Anticipated discharge date: in am Anticipated discharge place: Home Past Medical History Past Medical History: Chest Pain / Angina, GERD/Reflux, Hyperlipidemia, Hyperten kenyetta, Renal Disease Additional Past Medical History / Comment(s): stage 4 kidney disease History of Any Multi-Drug Resistant Organisms: None Reported Past Surgical History: No Surgical Hx Reported, Heart Catheterization, Heart Catheterization With Stent Past Anesthesia/Blood Transfusion Reactions: No Reported Reaction Past Psychological History: No Psychological Hx Reported Smoking Status: Former smoker Past Alcohol Use History: Rare Past Drug Use History: None Reported - Past Family History Mother Family Medical History: Cancer Father Family Medical History: Cancer Brother(s) Family Medical History: Cancer Sister(s) Family Medical History: Cancer Medications and Allergies Home Medications Medication Instructions Recorded Confirmed Type Aspirin EC [Ecotrin] 325 mg PO DAILY 01/29/21 03/09/22 History Cholecalciferol [Vitamin D3 (25 100 mcg PO DAILY 01/29/21 03/09/22 History Mcg = 1000 Iu)] Ezetimibe [Zetia] 10 mg PO DAILY 01/29/21 03/09/22 History Furosemide [Lasix] 20 mg PO BID 01/29/21 03/09/22 History Isosorbide Mononitrate ER [Imdur] 30 mg PO DAILY 01/29/21 03/09/22 History Metoprolol Succinate (ER) [Toprol 100 mg PO DAILY 01/29/21 03/09/22 History XL] Nitroglycerin Sl Tabs [Nitrostat] 0.4 mg SUBLINGUAL Q5M PRN 01/29/21 03/09/22 History Oxybutynin Chloride [Oxybutynin 15 mg PO DAILY 01/29/21 03/09/22 History Chloride ER] Potassium Chloride [K-Tab ER] 20 meq PO DAILY 01/29/21 03/09/22 History Pravastatin Sodium 80 mg PO HS 01/29/21 03/09/22 History Biotin [Biotin Disolve] 5,000 mcg PO DAILY 03/09/22 03/09/22 History Famotidine [Pepcid] 40 mg PO BID 03/09/22 03/09/22 History Ferrous Sulfate [Iron (65 MG 325 mg PO DAILY 03/09/22 03/09/22 History Elemental)] Hyoscyamine Sulfate [Hyoscyamine 0.125 mg SL AC-BID 03/09/22 03/09/22 History Sulfate SL] lisinopriL [Zestril] 5 mg PO DAILY 03/09/22 03/09/22 History Ticagrelor [Brilinta] 90 mg PO BID 30 Days #60 tab 03/11/22 Rx Allergies Allergy/AdvReac Type Severity Reaction Status Date / Time Penicillins Allergy Unknown Rash/Hives, Verified 03/11/22 19:37 Swelling Physical Exam Vitals: Vital Signs Temp Pulse Pulse Resp BP Pulse Ox 03/12/22 02:10 60 18 113/75 94 L 03/12/22 01:06 70 16 98 03/11/22 23:36 80 80 16 175/78 98 03/11/22 19:34 97.9 F 98 18 123/83 96 Intake and Output 03/11/22 03/11/22 03/12/22 14:59 22:59 06:59 Other: Weight 75.75 kg Results CBC & Chem 7: 03/11/22 19:41 03/11/22 19:41 Labs: Abnormal Lab Results - Last 24 Hours (Table) 03/11/22 03/11/22 03/11/22 Range/Units 19:41 19:41 19:41 RBC 3.49 L (3.80-5.40) m/uL Hgb 10.6 L (11.4-16.0) gm/dL Hct 31.1 L (34.0-46.0) % Chloride 113 H (98-107) mmol/L BUN 21 H (7-17) mg/dL Creatinine 1.20 H (0.52-1.04) mg/dL AST 39 H (14-36) U/L Troponin I 1.720 H* (0.000-0.034) ng/mL
[2022-03-12] MEDS ORDERED: ACETAMINOPHEN TAB 325 MG TAB PO PRN (09:41)
[2022-03-12] MEDS ORDERED: MAG HYDROX/AL HYDROX/SIMETH 30 ML, HYOSCYAMINE ELIXIR 10 ML, LIDOCAINE VISCOUS 2% 10 ML PO ONE ×3 (11:15)
[2022-03-12] MEDS ORDERED: VERAPAMIL 2.5 MG/ML 2 ML AMP ONE (11:18)
[2022-03-12] MEDS ORDERED: ASPIRIN 325 MG TAB ONE (11:33)
[2022-03-12] MEDS ORDERED: fentaNYL (PF) 50 MCG/ML 2 ML AMP ONE (11:45)
[2022-03-12] MEDS ORDERED: HEPARIN SODIUM 1,000 UN/ML (10ML VL) ONE (11:45)
[2022-03-12] MEDS ORDERED: SODIUM CHLORIDE 0.9% 1,000 ML IV ONE (11:48)
[2022-03-12] MEDS ORDERED: MIDAZOLAM 2 MG/2 ML VIAL IVP ONE (11:48)
[2022-03-12] MEDS ORDERED: fentaNYL (PF) 50 MCG/ML 2 ML AMP IVP ONE (11:48)
[2022-03-12] MEDS ORDERED: LIDOCAINE 1% INJ 10MG/ML (30 ML VIAL-PF) SQ ONE (11:50)
[2022-03-12] MEDS ORDERED: HEPARIN SODIUM 1,000 UN/ML (10ML VL) IVP ONE (11:58)
[2022-03-12] MEDS ORDERED: IOPAMIDOL-370 100ML BTL INJ ONE (12:07)
--- NOTE | 2022-03-12 12:16 | P.CARDCATH ---
Description of Procedure: PROCEDURES PERFORMED: Left heart catheterization, bilateral coronary angiography INDICATION: Non-STEMI, recent complex PCI left main into LAD with kissing balloon angioplasty of circumflex CONSENT:I have discussed the risks, benefits and alternative therapies for the above-mentioned procedure and for both sedation/analgesia as well as necessary blood product administration, if indicated, as they pertain to this patient. The patient has indicated understanding and acceptance of the risks and procedures discussed. PROCEDURE: After the risks, benefits and alternatives of the above mentioned procedure explained in detail with the patient, informed consent was obtained. Patient was taken to the catheterization lab and prepped and draped in usual fashion. 1% lidocaine was used to anesthetize the left radial artery. A 6- [place] sheath was placed in the left radial artery using modified Seldinger technique. Left coronary angiography was performed with a 5-[place]and[place] JL 3.5 catheter and right coronary angiography was performed with a 5-[place]and[place] JR5 catheter in various views. A 5-[place]and[place] FR5 catheter was inserted into the left ventricle and pressure measurements were obtained. The right radial sheath was removed and a TR band was placed with hemostasis achieved. The patient tolerated the procedure well. Patient was transported back to the post catheterization holding area in stable condition. Conscious Sedation: Patient was monitored under the direct supervision of vision of myself for conscious sedation using Versed and fentanyl for a total duration of 20 minutes HEMODYNAMICS: Aorta: 147/57 LV: 147/4, LVEDP 12 SELECTIVE CORONARY ARTERIOGRAPHY: LEFT MAIN: The left main is a large caliber vessel which bifurcates into the LAD and circumflex. There is a patent left main stent going into the LAD without significant stenosis. LEFT ANTERIOR DESCENDING CORONARY ARTERY: LAD is a large caliber vessel which wraps around to the apex. There is a proximal LAD stent with mild 10- 20% ostial stenosis and calcification unchanged from prior intervention LEFT CIRCUMFLEX CORONARY ARTERY: Left circumflex is a moderate caliber vessel with mild 10- 20% stenosis. RIGHT CORONARY ARTERY: The right coronary artery is a large caliber vessel which gives off a PDA and PLV branch and is the dominant vessel. There is mild 20% calcified ostial RCA stenosis and otherwise mild luminal irregularities FINAL IMPRESSION: 1. CAD as described above with patent left main stent in the LAD with similar 10-20% eccentric stenosis. Otherwise mild luminal irregularities of the circumflex and RCA 10-20%. 2. Normal left sided filling pressures PLAN: 1. Aggressive risk factor modification per most recent ACC/AHA guidelines. 2. Symptoms may be related to A. fib with stable stent. 3. Follow-up in the office in 1-2 weeks.
[2022-03-12] MEDS ORDERED: NITROGLYCERIN SL TABS 0.4 MG TAB SUBLINGUAL PRN (14:15)
[2022-03-12] MEDS: EZETIMIBE 10 MG TAB PO SCH (14:35)
[2022-03-12] MEDS: FERROUS SULFATE 325 MG TAB PO SCH (14:36)
[2022-03-12] MEDS: TICAGRELOR 90 MG TAB PO SCH ×2 (14:36→20:53)
[2022-03-12] MEDS: ASPIRIN 81 MG PO SCH (14:36)
[2022-03-12] MEDS: METOPROLOL SUCCINATE (ER) 100 MG TAB.ER.24H PO SCH (14:36)
[2022-03-12] MEDS: CHOLECALCIFEROL 25 MCG (1000 IU) TABLET PO SCH (14:36)
[2022-03-12] MEDS: lisinopriL 5 MG TAB PO SCH (14:36)
[2022-03-12] MEDS: ISOSORBIDE MONONITRATE ER 30 MG TAB.ER.24H PO SCH (14:36)
--- NOTE | 2022-03-12 14:36 | P.PN ---
Subjective Progress Note Date: 03/12/22 Hospital course: Patient is a very [id number] female with a PMH of hypertension, hyperlipidemia, CKD stage III, coronary artery disease status post recent PCI to LAD with MARISELA on 03/10/22 via right radial approach, discharged home 03/11/22 and return to emergency room later that evening with complaints of chest pain, palpitations, and nausea. The patient reports that her symptoms came on suddenly, with 10 out of 10 right-sided chest discomfort with radiation up to her jaw, intermittent, lasting for up to 5 minutes at a time and reoccurring about every 30 minutes. The pain was nonpleuritic with no alleviating or exacerbating features. She reported associated nausea and palpitations. Denied experiencing lower extremity swelling or pain. Patient states she is unsure if it is chest pain associated or if it is her reflux. She underwent full ev aluation in the emergency department. CBC revealing normocytic anemia with hemoglobin stable at 10.6, CMP consistent with stage IIIc daily with BUN 21, creatinine 1.20, GFR 44. Initial troponin 1.720 and proBNP 4040. Chest x-ray negative for acute cardiopulmonary process. EKG showing atrial fibrillation with a controlled rate of 100 bpm with T-wave inversions in aVL and V2. The ER physician discussed case with cardiology recommending heparin infusion. Patient was admitted under our services with consultation to cardiology. Troponins trended overnight resulting at 1.720, 1.540, and 1.500. Physical exam: Patient seen and fully evaluated at the bedside this morning. Patient reports previously reported chest pain, palpitations, and nausea have resolved. Patient does report throughout the night and morning she has had episodes of intermitten t chest discomfort and nausea stating she is unsure if it is her reflux or something to do with her heart. Patient remains on IV heparin infusion per ACS protocol at this time. Cardiology plans to take patient for cardiac cath later today. GI cocktail ordered for treatment of reflux. Patient denies having any dizziness, lightheadedness, palpitations, shortness of breath, or experiencing any numbness/tingling/weakness/swelling in her extremities. Vital signs reviewed and stable. General: Nontoxic, no distress and appears stated age. Derm: Skin warm and dry, normal coloration for ethnicity. Head: Atraumatic, normocephalic and symmetric. Eyes: EOMs intact, no lid lag, and anicteric sclera Mouth: no lip lesions, mucus membranes moist Cardiovascular: regular rate and rhythm with normal S1S2, no murmur, positive posterior tibial pulses bilaterally, and cap refill < 2 seconds. Lungs: Respirations even, regular, and unlabored on room air. Lungs CTA bilaterally, no rhonchi, no rales, no wheezing, and no accessory muscle usage. Abdominal: soft, nontender to palpation, no guarding, no appreciable organomegaly Ext: ROM intact. No gross muscle atrophy, no edema, no contractures Neuro: Speech clear, face symmetrical and CN II-XII grossly intact with no noted focal neuro deficits Psych: Alert and oriented to person, place, time, and situation. Appropriate and pleasant affect. Assessment and Plan of Care: Chest pain with Elevated troponins status post recent cardiac catheterization and stent placement on 03/10/22 Coronary artery disease -Continue telemetry monitoring -Case discussed by ED physician with cardiology electronic industrial controls mechanic who recommended heparin infusion -Cardiology following and planning to take patient for cardiac cath later today -Continue with cardiac medication regimen consisting of: Brillinta, aspirin, Zetia, Lasix, isosorbide mononitrate, lisinopril, metoprolol, and pravastatin Hypertension Monitor vital signs and continue daily medication regimen with lisinopril, metoprolol, and isosorbide mononitrate. Hyperlipidemia Continue daily medication regimen with pravastatin. Chronic kidney disease stage III , at baseline and stable CODE STATUS: Full Code DVT prophylaxis: Heparin Discussed with: Patient and RN Anticipated discharge date: Likely tomorrow Anticipated discharge place: Home A total of 36 minutes was spent on the care of this complex patient more than 50% of the time was spent in counseling and care coordination I reviewed the documentation as provided by the SULEMA above, who is the original author of this note. I agree with the documented assessment and plan, with the following changes: none Objective - Vital Signs Vital signs: Vital Signs Temp 97.9 F 03/11/22 19:34 Pulse 64 03/12/22 08:11 Resp 18 03/12/22 08:11 BP 155/67 03/12/22 08:11 Pulse Ox 97 03/12/22 08:11 FiO2 Intake & Output 03/11/22 03/12/22 03/12/22 18:59 06:59 18:59 Weight 75.75 kg - Labs CBC & Chem 7: 12/04/22 05:41 03/13/22 05:41 Labs: Abnormal Lab Results - Last 24 Hours (Table) 03/11/22 03/11/22 03/11/22 Range/Units 19:41 19:41 19:41 RBC 3.49 L (3.80-5.40) m/uL Hgb 10.6 L (11.4-16.0) gm/dL Hct 31.1 L (34.0-46.0) % Chloride 113 H (98-107) mmol/L BUN 21 H (7-17) mg/dL Creatinine 1.20 H (0.52-1.04) mg/dL AST 39 H (14-36) U/L Troponin I 1.720 H* (0.000-0.034) ng/mL 03/12/22 03/12/22 Range/Units 04:24 08:10 RBC (3.80-5.40) m/uL Hgb (11.4-16.0) gm/dL Hct (34.0-46.0) % Chloride (98-107) mmol/L BUN (7-17) mg/dL Creatinine (0.52-1.04) mg/dL AST (14-36) U/L Troponin I 1.540 H* 1.500 H* (0.000-0.034) ng/mL
[2022-03-12] MEDS ORDERED: FUROSEMIDE 20 MG TAB PO SCH (16:00)
[2022-03-12] MEDS: FAMOTIDINE 20 MG TAB PO SCH (20:53)
[2022-03-12] MEDS: APIXABAN 5 MG TAB PO SCH (20:53)
[2022-03-12] MEDS ORDERED: PRAVASTATIN SODIUM 80 MG TAB PO SCH (21:00)
--- NOTE | 2022-03-12 21:04 | CONS ---
CONSULTATION HISTORY OF PRESENT ILLNESS: Kenzie is a 76-year-old lady with history of coronary artery disease with recent angioplasty and stent placement of proximal LAD into the left main, who was discharged home by me yesterday, called me late yesterday evening complaining of palpitations, chest pressure, and jaw discomfort. I advised her to come to the emergency room, where she was evaluated. Her initial EKG showed atrial fibrillation, but she subsequently converted to sinus rhythm. Her troponin was elevated at 1.7. The subsequent troponins were 1.5 and 1.5. She is admitted to hospital for the same. At the time of my evaluation this morning, she appears comfortable at rest, but she still describes a pressure-like sensation in the right side of her chest. The chest discomfort is new compared to the chest discomfort that she had prior to her angioplasty. Her EKG does not reveal ST-T wave changes that revealed I have seen had been an abrupt closure of the stent. However, given the unexplained chest pain and a substantial bump in the troponin, I am advising her to undergo cardiac catheterization to ensure that her stents are properly positioned. It is possible that the elevated troponin is just related to the recent intervention. PAST MEDICAL HISTORY: Significant for coronary artery disease, status post angioplasty; hypertension; dyslipidemia. MEDICATIONS: Medications at home included: 1. Brilinta 90 b.i.d. 2. Zestril 5 daily. 3. K-Dur 20 daily. 4. Pravastatin 80 daily. 5. Toprol-XL 100 daily. 6. . 7. Lasix 20 b.i.d. 8. Pepcid. 9. Zetia. 10.Aspirin. ALLERGIES: The patient is allergic to penicillin. FAMILY HISTORY: Negative for premature coronary artery disease. SOCIAL HISTORY: Negative for current smoking, EtOH abuse, or drug abuse. REVIEW OF SYSTEMS: HEENT: Unremarkable. CARDIAC: As described above. RESPIRATORY: Negative. GI: Negative. GENITOURINARY: Negative. ALLERGY/IMMUNOLOGY: Negative. SKIN: Negative. MUSCULOSKELETAL: Negative. ENDOCRINE: Negative. DERM: Negative. CONSTITUTIONAL: Negative. ONCOLOGICAL: Negative. MANAGER ZONE: Negative. PHYSICAL EXAMINATION: GENERAL: The patient is comfortable at rest. VITAL SIGNS: Afebrile, heart rate is 80 beats per minute, blood pressure is 168/72, respiratory rate 18, and O2 saturation is 96% on room air. NECK: There is no jugular venous distention. Carotid upstroke is normal. There is no bruit. CHEST: Reveals good air entry bilaterally. HEART: Reveals first and second heart sounds. No gallop. Has a systolic murmur at the left lower sternal border. ABDOMEN: Soft. EXTREMITIES: Did not reveal any edema. Peripheral pulses are felt. LABORATORY DATA: Labs show a hemoglobin of 10.6, platelet count is 187. Troponins are elevated at 1.7, 1.5, and 1.5. Potassium is 4.5 and creatinine is 1.2. ASSESSMENT: 1. Chest pain with elevated troponin in a patient with recent coronary intervention. 2. Paroxysmal atrial fibrillation. 3. Elevated BNP of unclear clinical significance. PLAN: I advised the patient to undergo cardiac catheterization for further evaluation. She understands risks, benefits. Dr. Elizabeth, who performed her intervention will proceed with the diagnostic catheterization. MMODL / IJN: [id number] /
[2022-03-13 06:43] LABS: Basophils % (A) 1 %; Eosinophils # (A) 0.2 k/uL (0-0.7); Eosinophils % (A) 5 %; HCT 28.2 % (34.0-46.0); HGB 9.3 gm/dL (11.4-16.0); Lymphocytes # (A) 0.7 k/uL (1.0-4.8); Lymphocytes % (A) 13 %; MCH 29.7 pg (25.0-35.0); MCHC 32.8 g/dL (31.0-37.0); MCV 90.3 fL (80.0-100.0); Mean Platelet Volume 7.9; Monocytes # (A) 0.3 k/uL (0-1.0); Monocytes % (A) 7 %; Neutrophils # (A) 3.7 k/uL (1.3-7.7); Neutrophils % (A) 72 %; Platelet Count 175 k/uL (150-450); RBC 3.12 m/uL (3.80-5.40); RDW 13.9 % (11.5-15.5); WBC 5.1 k/uL (3.8-10.6)
[2022-03-13 06:59] LABS: Albumin 3.1 g/dL (3.5-5.0); Calcium 7.9 mg/dL (8.4-10.2); Potassium 3.9 mmol/L (3.5-5.1); Total Bilirubin 0.5 mg/dL (0.2-1.3); Total Protein 5.5 g/dL (6.3-8.2)
[2022-03-13 07:12] VITALS: BP 158/64; TEMP 98.4
[2022-03-13] MEDS: POLYMYXIN B-TRIMETHOPRIM SULF (10,000-1) OPHTH DROPS 10 ML BTL LEFT EYE SCH (07:13)
[2022-03-13] MEDS: CHOLECALCIFEROL 25 MCG (1000 IU) TABLET PO SCH (07:46)
[2022-03-13] MEDS: FERROUS SULFATE 325 MG TAB PO SCH (07:46)
[2022-03-13] MEDS: EZETIMIBE 10 MG TAB PO SCH (07:47)
[2022-03-13] MEDS: APIXABAN 5 MG TAB PO SCH (07:47)
[2022-03-13] MEDS: ISOSORBIDE MONONITRATE ER 30 MG TAB.ER.24H PO SCH (07:47)
[2022-03-13] MEDS: lisinopriL 5 MG TAB PO SCH (07:47)
[2022-03-13] MEDS: FAMOTIDINE 20 MG TAB PO SCH (07:47)
[2022-03-13] MEDS: ASPIRIN 81 MG PO SCH (07:47)
[2022-03-13] MEDS: TICAGRELOR 90 MG TAB PO SCH (07:48)
[2022-03-13 07:55] VITALS: PULSE 76; RESP 16
[2022-03-13] MEDS: METOPROLOL SUCCINATE (ER) 100 MG TAB.ER.24H PO SCH (08:12)
[2022-03-13] MEDS ORDERED: FUROSEMIDE 20 MG TAB PO SCH (09:00)
--- NOTE | 2022-03-13 10:25 | P.DS ---
Providers Date of admission: 03/12/22 00:01 Expected date of discharge: 03/13/22 Attending physician: Anne Tiwari MD Consults: 03/12/22 00:01 Consult Physician Routine Consulting Provider: Amandeep Rivera Consult Reason/Comments: cp,lucreciaCath Do you want consulting provider notified?: Yes Primary care physician: [facility] Course: Discharge Diagnosis: Chest pain with Elevated troponins status post recent cardiac catheterization and stent placement on 03/10/22. Acute coronary event ruled out. Patient was taken to [facility] which revealed patent left main stent in the LAD with similar 10-20% eccentric stenosis and mild luminal irregularities of the circumflex and RCA 10-20%, cardiology stating symptoms possibly related to atrial fibrillation was stable stent and to continue aggressive risk factor modification and follow- up in office in 1-2 weeks. Cardiology starting patient on anticoagulant Eliquis in addition to daily aspirin and Brillinta. Coronary artery disease. Continue with cardiac medication regimen consisting of: Brillinta, aspirin, Zetia, Lasix, isosorbide mononitrate, lisinopril, metoprolol, and pravastatin Hypertension. Monitor vital signs and continue daily medication regimen with lisinopril, metoprolol, and isosorbide mononitrate. Hyperlipidemia. Continue daily medication regimen with pravastatin. Chronic kidney disease stage III , at baseline and stable Hospital Course: Patient is a very -vnek-hfn female with a PMH of hypertension, hyperlipidemia, CKD stage III, coronary artery disease status post recent PCI to LAD with MARISELA on 03/10/22 via right radial approach, discharged home 03/11/22 and return to emergency room later that evening with complaints of chest pain, palpitations, and nausea. The patient reports that her symptoms came on suddenly, with 10 out of 10 right-sided chest discomfort with radiation up to her jaw, intermittent, lasting for up to 5 minutes at a time and reoccurring about every 30 minutes. The pain was nonpleuritic with no alleviating or exacerbating features. She reported associated nausea and palpitations. Denied experiencing lower extremity swelling or pain. Patient states she is unsure if it is chest pain associated or if it is her reflux. She underwent full evaluation in the emergency department. CBC revealing normocytic anemia with hemoglobin stable at 10.6, CMP consistent with stage IIIc daily with BUN 21, creatinine 1.20, GFR 44. Initial troponin 1.720 and proBNP 4040. Chest x-ray negative for acute cardiopulmonary process. EKG showing atrial fibrillation with a controlled rate of 100 bpm with T-wave inversions in aVL and V2. The ER physician discussed case with cardiology recommending heparin infusion. Patient was admitted under our services with consultation to cardiology. Troponins trended overnight resulting at 1.720, 1.540, and 1.500. Patient was taken for cardiac cath which revealed patent left main stent in the LAD with similar 10- 20% eccentric stenosis and mild luminal irregularities of the circumflex and RCA 10-20%, cardiology stating symptoms possibly related to atrial fibrillation was stable stent and to continue aggressive risk factor modification and follow-up in office in 1-2 weeks. Cardiology starting patient on anticoagulant Eliquis in addition to daily aspirin and Brillinta. Patient remains free from any chest pain or discomfort throughout the night and denies having any pain or complaints this morning. Cardiac cath access site left wrist showing no signs of bleeding, drainage, or hematoma. Patient denies having any numbness/tingling/weakness in extremities. Medically, patient is stable for discharge home at this time. Patient to follow up outpatient with PCP in 1-2 days and with cardiology in 1 week. Physical exam: Vital signs reviewed and stable. General: Nontoxic, no distress and appears stated age. Derm: Skin warm and dry, normal coloration for ethnicity. Head: Atraumatic, normocephalic and symmetric. Eyes: EOMs intact, no lid lag, and anicteric sclera Mouth: no lip lesions, mucus membranes moist Cardiovascular: regular rate and rhythm with normal S1S2, no murmur, positive posterior tibial pulses bilaterally, and cap refill < 2 seconds. Lungs: Respirations even, regular, and unlabored on room air. Lungs CTA bilaterally, no rhonchi, no rales, no wheezing, and no accessory muscle usage. Abdominal: soft, nontender to palpation, no guarding, no appreciable organomegaly Ext: ROM intact. No gross muscle atrophy, no edema, no contractures Neuro: Speech clear, face symmetrical and CN II-XII grossly intact with no noted focal neuro deficits Psych: Alert and oriented to person, place, time, and situation. Appropriate and pleasant affect. A total of 38 minutes of time were spent preparing this complex discharge summary. Pt was discharged on 03/13/22 at 10:23 AM. I reviewed the documentation as provided by the SULEMA above, who is the original author of this note. I agree with the documented assessment and plan, with the following changes: none Patient Condition at Discharge: Stable Plan - Discharge Summary Discharge Rx Participant: No New Discharge Prescriptions: New Polymyxin B-Trimeth Sulf Ophth [Polytrim Opthalmic] 2 drops LEFT EYE Q6HR 10 Days #1 each Apixaban [Eliquis] 5 mg PO BID 30 Days #60 tab Mag Hydrox/Al Hydrox/Simeth [Maalox] 30 ml PO HS 30 Days #900 ml Continue Ezetimibe [Zetia] 10 mg PO DAILY Nitroglycerin Sl Tabs [Nitrostat] 0.4 mg SUBLINGUAL Q5M PRN PRN Reason: Chest Pain Cholecalciferol [Vitamin D3 (25 Mcg = 1000 Iu)] 100 mcg PO DAILY Famotidine [Pepcid] 40 mg PO BID Isosorbide Mononitrate ER [Imdur] 30 mg PO DAILY Furosemide [Lasix] 20 mg PO BID Pravastatin Sodium 80 mg PO HS Potassium Chloride [K-Tab ER] 20 meq PO DAILY Oxybutynin Chloride [Oxybutynin Chloride ER] 15 mg PO DAILY Metoprolol Succinate (ER) [Toprol XL] 100 mg PO DAILY Aspirin EC [Ecotrin] 325 mg PO DAILY Ferrous Sulfate [Iron (65 MG Elemental)] 325 mg PO DAILY Biotin [Biotin Disolve] 5,000 mcg PO DAILY lisinopriL [Zestril] 5 mg PO DAILY Hyoscyamine Sulfate [Hyoscyamine Sulfate SL] 0.125 mg SL AC-BID Ticagrelor [Brilinta] 90 mg PO BID 30 Days #60 tab Discharge Medication List Aspirin EC [Ecotrin] 325 mg PO DAILY 01/29/21 [History] Cholecalciferol [Vitamin D3 (25 Mcg = 1000 Iu)] 100 mcg PO DAILY 01/29/21 [History] Ezetimibe [Zetia] 10 mg PO DAILY 01/29/21 [History] Furosemide [Lasix] 20 mg PO BID 01/29/21 [History] Isosorbide Mononitrate ER [Imdur] 30 mg PO DAILY 01/29/21 [History] Metoprolol Succinate (ER) [Toprol XL] 100 mg PO DAILY 01/29/21 [History] Nitroglycerin Sl Tabs [Nitrostat] 0.4 mg SUBLINGUAL Q5M PRN 01/29/21 [History] Oxybutynin Chloride [Oxybutynin Chloride ER] 15 mg PO DAILY 01/29/21 [History] Potassium Chloride [K-Tab ER] 20 meq PO DAILY 01/29/21 [History] Pravastatin Sodium 80 mg PO HS 01/29/21 [History] Biotin [Biotin Disolve] 5,000 mcg PO DAILY 03/09/22 [History] Famotidine [Pepcid] 40 mg PO BID 03/09/22 [History] Ferrous Sulfate [Iron (65 MG Elemental)] 325 mg PO DAILY 03/09/22 [History] Hyoscyamine Sulfate [Hyoscyamine Sulfate SL] 0.125 mg SL AC-BID 03/09/22 [History] lisinopriL [Zestril] 5 mg PO DAILY 03/09/22 [History] Ticagrelor [Brilinta] 90 mg PO BID 30 Days #60 tab 03/11/22 [Rx] Apixaban [Eliquis] 5 mg PO BID 30 Days #60 tab 03/13/22 [Rx] Mag Hydrox/Al Hydrox/Simeth [Maalox] 30 ml PO HS 30 Days #900 ml 03/13/22 [Rx] Polymyxin B-Trimeth Sulf Ophth [Polytrim Opthalmic] 2 drops LEFT EYE Q6HR 10 Days #1 each 03/13/22 [Rx] Follow up Appointment(s)/Referral(s): Guzman Elizabeth DO [STAFF PHYSICIAN] - 1 Week Ravindra Ravi MD [Primary Care Provider] - 1-2 days Patient Instructions/Handouts: Heart Catheterization (DC) Activity/Diet/Wound Care/Special Instructions: Activity: As tolerated. Take breaks as needed. Diet: Heart healthy and carb consistent diet. Avoid salts, or foods with hidden salts such as canned or boxed foods and frozen dinners. Extra salt makes your heart work harder and traps the fluid in your body for longer. Special Instructions: Take all of your medications as directed and remember to keep all of your doctor's appointments and follow-up as needed. You are also being discharged home on a blood thinner, Eliquis. This is very important to take daily as directed until otherwise advised by your car park attendant, Dr. Elizabeth. Being that you are being placed on a blood thinner in addition to your Aspirin and Brillinta, it is very important to watch for any signs of bleeding and notify your doctor immediately if you notice any bleeding. It is also important to remove any trip hazards such as rugs or loose extension cords from your home to prevent unnecessary falls and if you do experience a fall or head injury, it is extremely important to be evaluated by a medical provider immediately to ensure no internal bleeding. Thank you for allowing us to participate in your care, it was truly a pleasure having you for our patient!!! Discharge Disposition: HOME SELF-CARE
--- NOTE | 2022-03-13 13:23 | PN ---
PROGRESS NOTE SUBJECTIVE: Kenzie is a 76-year-old lady with severe proximal LAD stenosis for which she underwent angioplasty, came back with chest pain and had mild troponin elevation. She underwent another catheterization, we found that the stent was properly positioned. She is doing well, has not had any further symptoms and the episode of atrial fibrillation that she had, had resolved. OBJECTIVE: GENERAL: Today, she is comfortable at rest. VITAL SIGNS: Stable. CHEST: Reveals good air entry bilaterally. HEART: Reveals first and second heart sounds. No gallop. EXTREMITIES: Did not reveal any edema. Left radial artery access site appears normal. MEDICATIONS: The patient is on: 1. Eliquis 5 b.i.d. 2. Aspirin 81 mg daily. 3. Brilinta. 4. Imdur. 5. Toprol-XL. 6. Pravachol. ASSESSMENT AND PLAN: She will follow up with me in the office over the next several weeks. She is going to stop the aspirin after 4 weeks and just continue the Brilinta and Eliquis at that time. MMODL / IJN: [id number] /
[2022-03-14] MEDS ORDERED: FAMOTIDINE 20 MG TAB PO SCH (09:00)
== END 2022-03-13 11:22 | disposition home or self-care (01) ==
LOC: EC 19:30 → 3SCARD 03-12 00:01 → 2SICU 03-12 12:11
PROVIDERS: ADMIT Internal Medicine; ATTEND Internal Medicine
DX: R07.89 Other chest pain (principal); R79.89 Other specified abnormal findings of blood chemistry; I48.0 Paroxysmal atrial fibrillation; Z95.5 Presence of coronary angioplasty implant and graft; I12.9 Hypertensive chronic kidney disease with stage 1 through stage 4 chronic kidney disease, or unspecified chronic kidney disease; E78.5 Hyperlipidemia, unspecified; I25.10 Atherosclerotic heart disease of native coronary artery without angina pectoris; K21.9 Gastro-esophageal reflux disease without esophagitis; N18.30 Chronic kidney disease, stage 3 unspecified; D64.9 Anemia, unspecified; Z79.82 Long term (current) use of aspirin; Z79.02 Long term (current) use of antithrombotics/antiplatelets; Z79.899 Other long term (current) drug therapy; Z88.0 Allergy status to penicillin; Z98.890 Other specified postprocedural states; Z87.891 Personal history of nicotine dependence; Z80.9 Family history of malignant neoplasm, unspecified
CPT/HCPCS: 96376; 96365; 96366; 99291; 36415; 94760; 93005 ×2; 93458; 83880; 80053 ×2; 83690; 83735; 84484 ×2; 85025 ×2; 85610; 85730; 71045; G0378 ×3; C1769; C1894; J2250; J2001; J3010; J1644 ×2; Q9967

== ENCOUNTER 2022-03-24 19:09 | Emergency (ER) | payer MEDICARE ==
[2022-03-24 19:16] VITALS: BP 150/66; PULSE 91; RESP 20; TEMP 98
[2022-03-24] MEDS ORDERED: ONDANSETRON 4 MG/2 ML VIAL IVP STA (20:34)
[2022-03-24] MEDS ORDERED: MORPHINE SULFATE 4 MG/ML SYRINGE IV STA (20:34)
--- NOTE | 2022-03-24 21:02 | ED ---
Extremity Problem HPI - General Chief complaint: Extremity Problem,Nontraumatic Stated complaint: Leg Swelling/Pain Time Seen by Provider: 03/24/22 20:26 Source: patient, RN notes reviewed Mode of arrival: wheelchair Limitations: no limitations - History of Present Illness Initial comments: This is a pleasant 76-year-old female who presents to the emergency department complaining of right ankle pain. Patient states pain is quite intense, 10 out of 10 in intensity. Last night. Patient also noted swelling to the area. Pain did radiated lower leg at times. That is resolved. Patient was somewhat concerned because she just had cardiac stenting done here and was released on March 15. Patient denying any chest pain or palpitations. Patient is on anticoagulation therapy. Patient states she is having a hard time walking on the right foot due to the pain. No skin rashes or lesions. Pain is exacerbated by ambulation and movement. Also exacerbated by palpation. Located in the lateral ankle. No erythema No headache, no fever or chills, no changes in vision or hearing, no sore throat or difficulty with speech, no neck pain, no chest pain or shortness of breath, no abdominal pain, no nausea or vomiting, no changes in urination or bowel movements, no numbness or tingling,, no skin rashes or lesions. Past medical, surgical, social, and family history reviewed. - Related Data Home Medications Medication Instructions Recorded Confirmed Aspirin EC [Ecotrin] 325 mg PO DAILY 01/29/21 03/12/22 Cholecalciferol [Vitamin D3 (25 100 mcg PO DAILY 01/29/21 03/12/22 Mcg = 1000 Iu)] Ezetimibe [Zetia] 10 mg PO DAILY 01/29/21 03/12/22 Furosemide [Lasix] 20 mg PO BID 01/29/21 03/12/22 Isosorbide Mononitrate ER [Imdur] 30 mg PO DAILY 01/29/21 03/12/22 Metoprolol Succinate (ER) [Toprol 100 mg PO DAILY 01/29/21 03/12/22 XL] Nitroglycerin Sl Tabs [Nitrostat] 0.4 mg SUBLINGUAL Q5M PRN 01/29/21 03/12/22 Oxybutynin Chloride [Oxybutynin 15 mg PO DAILY 01/29/21 03/12/22 Chloride ER] Potassium Chloride [K-Tab ER] 20 meq PO DAILY 01/29/21 03/12/22 Pravastatin Sodium 80 mg PO HS 01/29/21 03/12/22 Biotin [Biotin Disolve] 5,000 mcg PO DAILY 03/09/22 03/12/22 Famotidine [Pepcid] 40 mg PO BID 03/09/22 03/12/22 Ferrous Sulfate [Iron (65 MG 325 mg PO DAILY 03/09/22 03/12/22 Elemental)] Hyoscyamine Sulfate [Hyoscyamine 0.125 mg SL AC-BID 03/09/22 03/12/22 Sulfate SL] lisinopriL [Zestril] 5 mg PO DAILY 03/09/22 03/12/22 Previous Rx's Medication Instructions Recorded Ticagrelor [Brilinta] 90 mg PO BID 30 Days #60 tab 03/11/22 Apixaban [Eliquis] 5 mg PO BID 30 Days #60 tab 03/13/22 Mag Hydrox/Al Hydrox/Simeth 30 ml PO HS 30 Days #900 ml 03/13/22 [Maalox] Polymyxin B-Trimeth Sulf Ophth 2 drops LEFT EYE Q6HR 10 Days #1 03/13/22 [Polytrim Opthalmic] each Docusate [Colace] 100 mg PO DAILY #24 capsule 03/24/22 HYDROcodone/APAP 5-325MG [[place] 1 tab PO Q6HR PRN 3 Days #12 tab 03/24/22 5-325] methylPREDNISolone Dose Pack 4 mg PO DIRECTED #21 tab 03/24/22 [Medrol Dose Pack] Allergies Allergy/AdvReac Type Severity Reaction Status Date / Time Penicillins Allergy Unknown Rash/Hives, Verified 03/24/22 19:16 Swelling Review of Systems ROS Statement: Those systems with pertinent positive or pertinent negative responses have been documented in the HPI. ROS Other: All systems not noted in ROS Statement are negative. Past Medical History Past Medical History: Chest Pain / Angina, GERD/Reflux, Hyperlipidemia, Hypertension, Renal Disease Additional Past Medical History / Comment(s): stage 4 kidney disease History of Any Multi-Drug Resistant Organisms: None Reported Past Surgical History: Heart Catheterization, Heart Catheterization With Stent Additional Past Surgical History / Comment(s): Heart cath 03/10-Stent LAD- ballooning to circ-failed (R) radial-(R) groin angioseal Past Anesthesia/Blood Transfusion Reactions: No Reported Reaction Date of Last Stent Placement:: 03/10/2022 Past Psychological History: No Psychological Hx Reported Smoking Status: Former smoker - Past Family History Mother Family Medical History: Cancer Father Family Medical History: Cancer Brother(s) Family Medical History: Cancer Sister(s) Family Medical History: Cancer General Exam - General Exam Comments Initial Comments: Patient in distress secondary to right ankle pain. Does not appear to be ill or toxic Limitations: no limitations General appearance: alert, in distress Head exam: Present: atraumatic, normocephalic, normal inspection Eye exam: Present: normal appearance, PERRL, EOMI. Absent: scleral icterus, conjunctival injection, periorbital swelling ENT exam: Present: normal exam, normal oropharynx, mucous membranes moist, normal external ear exam Neck exam: Present: normal inspection. Absent: tenderness, meningismus, lymphadenopathy Respiratory exam: Present: normal lung sounds bilaterally. Absent: respiratory distress, wheezes, rales, rhonchi, stridor, chest wall tenderness, accessory muscle use Cardiovascular Exam: Present: regular rate, normal rhythm, normal heart sounds. Absent: systolic murmur, diastolic murmur, rubs, gallop, clicks GI/Abdominal exam: Present: soft. Absent: distended, tenderness, guarding, rebound, rigid Extremities exam: Present: normal inspection, full ROM (With pain), tenderness (Patient tended to the lateral aspect of the right ankle. No erythema. Pulses intact. Capillary refill less than 2 seconds. No pallor. Foot is warm.), normal capillary refill, pedal edema (Scant ankle edema noted.). Absent: joint swelling, calf tenderness Back exam: Present: normal inspection. Absent: rash noted Neurological exam: Present: alert, oriented X3, CN II-XII intact Psychiatric exam: Present: normal affect, normal mood Skin exam: Present: warm, dry, intact, normal color. Absent: rash, cyanosis, diaphoretic, erythema, urticaria, vesicles, petechiae, pallor, mottled, abrasion Course Vital Signs 03/24/22 19:12 Temperature 98.0 F Pulse Rate 91 Respiratory 20 Rate Blood Pressure 150/66 O2 Sat by Pulse 96 Oximetry - Reevaluation(s) Reevaluation #1: 03/24/22 22:35 Medical record is reviewed Symptoms are improved here in the emergency department--this is still having some pain Patient is informed of results and questions answered Patient in no distress Medical Decision Making - Medical Decision Making Differential diagnosis: Gout, pseudogout, other inflammatory arthritis, there was no injury, does not appear to be consistent with vascular insult. Does not appear to be consistent with infectious etiology. We will order a venous Doppler although any have a DVT would be unlikely as the patient is anticoagulated. - Lab Data Result diagrams: 03/24/22 20:53 03/24/22 20:53 Lab Results 03/24/22 03/24/22 Range/Units 20:53 20:53 WBC 8.6 (3.8-10.6) k/uL RBC 3.47 L (3.80-5.40) m/uL Hgb 10.5 L (11.4-16.0) gm/dL Hct 31.0 L (34.0-46.0) % MCV 89.3 (80.0-100.0) fL MCH 30.1 (25.0-35.0) pg MCHC 33.7 (31.0-37.0) g/dL RDW 13.6 (11.5-15.5) % Plt Count 349 (150-450) k/uL MPV 7.5 Neutrophils % 82 % Lymphocytes % 8 % Monocytes % 7 % Eosinophils % 2 % Basophils % 0 % Neutrophils # 7.1 (1.3-7.7) k/uL Lymphocytes # 0.6 L (1.0-4.8) k/uL Monocytes # 0.6 (0-1.0) k/uL Eosinophils # 0.2 (0-0.7) k/uL Basophils # 0.0 (0-0.2) k/uL ESR QNS Sodium 139 (137-145) mmol/L Potassium 5.0 (3.5-5.1) mmol/L Chloride 106 (98-107) mmol/L Carbon Dioxide 24 (22-30) mmol/L Anion Gap 9 mmol/L BUN 51 H (7-17) mg/dL Creatinine 1.90 H (0.52-1.04) mg/dL Est GFR (CKD-EPI)AfAm 29 (>60 ml/min/1.73 sqM) Est GFR (CKD-EPI)NonAf 25 (>60 ml/min/1.73 sqM) Glucose 104 H (74-99) mg/dL Calcium 9.0 (8.4-10.2) mg/dL Total Bilirubin 0.5 (0.2-1.3) mg/dL AST 29 (14-36) U/L ALT 20 (4-34) U/L Alkaline Phosphatase 83 (38-126) U/L C-Reactive Protein 2.2 H (<1.0) mg/dL Total Protein 7.4 (6.3-8.2) g/dL Albumin 4.2 (3.5-5.0) g/dL - Radiology Data Radiology results: report reviewed, image reviewed Independent interpretation of the plain film x-rays and venous Doppler by me reveal no evidence of acute pathology other than the soft tissue swelling to the lateral aspect of the ankle. Radiology report reviewed Disposition Clinical Impression: Gouty arthritis of right ankle, Acute right ankle pain Disposition: HOME SELF-CARE Condition: Good Instructions (If sedation given, give patient instructions): Gout (ED), Arthralgia (ED) Additional Instructions: Elevate the affected ankle as much as possible. Consider taking a stool softener while you're taking the pain medication. No driving or operating ma chines while taking the acetaminophen/hydrocodone. Medrol Dosepak as directed. Follow-up with your regular physician as directed. Return to the ER immediately if any symptoms worsen, new symptoms arise, or any other problems develop. Is patient prescribed a controlled substance at d/c from ED?: No Referrals: Ravindra Ravi MD [Primary Care Provider] - 1-2 days Time of Disposition: 22:40
[2022-03-24 21:25] LABS: Basophils % (A) 0 %; Eosinophils # (A) 0.2 k/uL (0-0.7); Eosinophils % (A) 2 %; HGB 10.5 gm/dL (11.4-16.0); Lymphocytes # (A) 0.6 k/uL (1.0-4.8); Lymphocytes % (A) 8 %; MCH 30.1 pg (25.0-35.0); MCHC 33.7 g/dL (31.0-37.0); MCV 89.3 fL (80.0-100.0); Mean Platelet Volume 7.5; Monocytes # (A) 0.6 k/uL (0-1.0); Monocytes % (A) 7 %; Neutrophils # (A) 7.1 k/uL (1.3-7.7); Neutrophils % (A) 82 %; Platelet Count 349 k/uL (150-450); RBC 3.47 m/uL (3.80-5.40); RDW 13.6 % (11.5-15.5); WBC 8.6 k/uL (3.8-10.6)
[2022-03-24 21:28] LABS: Erythrocyte Sedimentation Rate QNS mm/hr (0-20)
[2022-03-24 21:29] LABS: Albumin 4.2 g/dL (3.5-5.0); C Reactive Protein 2.2 mg/dL (<1.0); Total Bilirubin 0.5 mg/dL (0.2-1.3); Total Protein 7.4 g/dL (6.3-8.2)
--- NOTE | 2022-03-24 22:02 | US ---
EXAMINATION TYPE: US venous doppler duplex LE RT DATE OF EXAM: 03/24/2022 8:38 PM COMPARISON: NONE CLINICAL HISTORY: Right lower extremity pain/edema. Right leg pain that started last night. Patient s tates right now it is only in her foot. No hx of DVT, pt not sure if she is on blood thinners SIDE PERFORMED: Right TECHNIQUE: The lower extremity deep venous system is examined utilizing real time linear array sonog mazin with graded compression, doppler sonography and color-flow sonography. VESSELS IMAGED: Common Femoral Vein Deep Femoral Vein Greater Saphenous Vein * Femoral Vein Popliteal Vein Small Saphenous Vein * Proximal Calf Veins (* superficial vessels) Right Leg: No evidence of DVT seen. IMPRESSION: No evidence of deep vein thrombosis in the right leg.
--- NOTE | 2022-03-24 22:03 | XR ---
EXAMINATION TYPE: XR ankle complete RT DATE OF EXAM: 03/24/2022 COMPARISON: None HISTORY: Right ankle pain and swelling TECHNIQUE: 3 view right ankle FINDINGS: Mild soft tissue swelling is over the inferior ankle. The ankle mortise is intact. No acute fracture or dislocation is evident. Calcaneal heel spurs are present. Follow up exams can be performed 7-10 days from acute trauma for continued pain. IMPRESSION: 1. Diffuse soft tissue swelling at the ankle.
[2022-03-24] MEDS ORDERED: methylPREDNISolone SOD SUCCI 125 MG/2 ML VIAL IV STA (22:27)
[2022-03-24] MEDS ORDERED: HYDROcodone/APAP 5-325MG 1 EACH TAB PO STA (22:32)
== END 2022-03-24 23:35 | disposition home or self-care (01) ==
LOC: EC 19:09
DX: M10.071 Idiopathic gout, right ankle and foot (principal); I12.9 Hypertensive chronic kidney disease with stage 1 through stage 4 chronic kidney disease, or unspecified chronic kidney disease; E78.5 Hyperlipidemia, unspecified; N18.4 Chronic kidney disease, stage 4 (severe); Z87.891 Personal history of nicotine dependence; Z79.82 Long term (current) use of aspirin; Z79.899 Other long term (current) drug therapy
CPT/HCPCS: 36415; 80053; 85652; 84550; 85025; 86140; 73610; 93971; 99283; 96374; 96375 ×2; J2270; J2930; J2405

== ENCOUNTER → 2022-07-01 | Outpatient (CLI) | payer MEDICARE ==
[2022-07-01 14:59] LABS: ALT 12 U/L (8-44); AST 16 U/L (13-35); Chol/HDL Ratio 3.23 Ratio; VLDL Calculation 16.36 mg/dL (5.00-40.00)
== END | disposition home or self-care (01) ==
LOC: LABWHC1 08:09
PROVIDERS: ATTEND Internal Medicine Cardiovascular Disease
DX: E78.2 Mixed hyperlipidemia (principal)
CPT/HCPCS: 36415; 80061; 84450; 84460

== ENCOUNTER → 2022-09-20 | Outpatient (CLI) | payer MEDICARE ==
[2022-09-20 17:08] LABS: Creatinine,Urine Random 73.9 mg/dL; Protein/Creatinine Ratio,Urine 0.095
[2022-09-20 20:52] LABS: % Iron Saturation 15.71 (12.00-45.00); BUN/Creat Ratio 21.43 Ratio (12.00-20.00); Calcium 9.7 mg/dL (8.7-10.3); Carbon Dioxide 24.3 mmol/L (21.6-31.8); Chloride 104 mmol/L (96-109); Glucose 91 mg/dL (70-110); Iron 55 UG/DL (50-170); Magnesium 2.1 mg/dL (1.5-2.4); Phosphorus 3.9 mg/dL (2.4-5.1); Potassium 4.9 mmol/L (3.5-5.5); Sodium 142 mmol/L (135-145); Total Iron Binding Capacity 350 UG/DL (228-460); Uric Acid 6.9 mg/dL (2.9-7.7)
[2022-09-21 00:14] LABS: Microalbumin Creatinine Ratio <16 mg/g Cr (0-30); Urine Creatinine 75.4 mg/dL (28.0-217.0)
[2022-09-21 03:05] LABS: Basophils # (A) 0.03 X 10*3/uL (0.00-0.10); Basophils % (A) 0.5 %; Eosinophils # (A) 0.18 X 10*3/uL (0.04-0.35); Eosinophils % (A) 3.1 %; HCT 35.4 % (37.2-46.3); HGB 10.7 d/dL (12.0-15.0); Lymphocytes # (A) 0.86 X 10*3/uL (0.90-5.00); Lymphocytes % (A) 14.9 %; MCH 27.8 pg (27.0-32.0); MCHC 30.2 d/dL (32.0-37.0); MCV 91.9 FL (80.0-97.0); Mean Platelet Volume 10.1 FL (9.5-12.2); Monocytes # (A) 0.51 X 10*3/uL (0.20-1.00); Monocytes % (A) 8.8 %; NRBC Per 100 WBC 0 X 10*3/uL (0.00-0.01); Neutrophils # (A) 4.18 X 10*3/uL (1.80-7.70); Neutrophils % (A) 72.2 %; Platelet Count 280 X 10*3/uL (140-440); RBC 3.85 X 10*6/uL (4.10-5.20); RDW 15.6 % (11.5-14.5); WBC 5.79 X 10*3/uL (4.50-10.00)
[2022-09-21 11:31] LABS: Almond IgE <0.10 kU/L (<0.10); Almond IgE Class CLASS 0
== END | disposition home or self-care (01) ==
LOC: LABWHC1 16:05
PROVIDERS: ATTEND Internal Medicine Nephrology
DX: N25.81 Secondary hyperparathyroidism of renal origin (principal); D63.1 Anemia in chronic kidney disease; N18.4 Chronic kidney disease, stage 4 (severe); E55.9 Vitamin D deficiency, unspecified; M10.9 Gout, unspecified; N39.0 Urinary tract infection, site not specified; R80.9 Proteinuria, unspecified
CPT/HCPCS: 36415; 80048; 82043; 82306; 82570; 82728; 83540; 83550; 83735; 83970; 84100; 84156; 84550; 85025; 86003

== ENCOUNTER → 2023-01-11 | Outpatient (CLI) | payer MEDICARE ==
[2023-01-11 16:26] LABS: Basophils # (A) 0.03 X 10*3/uL (0.00-0.10); Basophils % (A) 0.5 %; Eosinophils % (A) 3.4 %; HCT 32.9 % (37.2-46.3); HGB 10.7 d/dL (12.0-15.0); Lymphocytes # (A) 0.91 X 10*3/uL (0.90-5.00); Lymphocytes % (A) 15.6 %; MCH 29.3 pg (27.0-32.0); MCHC 32.5 d/dL (32.0-37.0); MCV 90.1 FL (80.0-97.0); Mean Platelet Volume 10.3 FL (9.5-12.2); Monocytes # (A) 0.58 X 10*3/uL (0.20-1.00); Monocytes % (A) 9.9 %; NRBC Per 100 WBC 0 X 10*3/uL (0.00-0.01); Neutrophils % (A) 70.1 %; Platelet Count 272 X 10*3/uL (140-440); RBC 3.65 X 10*6/uL (4.10-5.20); RDW 15.9 % (11.5-14.5); WBC 5.85 X 10*3/uL (4.50-10.00)
[2023-01-11 16:35] LABS: Appearance,Urine Clear (Clear); Bilirubin,Urine Negative (Negative); Blood,Urine Negative (Negative); Color,Urine Yellow (Yellow); Ketones,Urine Negative (Negative); Nitrite,Urine Negative (Negative); Specific Gravity,Urine 1.012 (1.001-1.030); Urobilinogen,Urine 0.2 E.U./DL
[2023-01-11 16:55] LABS: Bacteria,Urine 1+ (None Seen)
[2023-01-11 17:19] LABS: BUN/Creat Ratio 23.79 Ratio (12.00-20.00); Blood Urea Nitrogen 33.3 mg/dL (9.0-27.0); Chloride 106 mmol/L (96-109); Glucose 89 mg/dL (70-110); Magnesium 2.1 mg/dL (1.5-2.4); Phosphorus 3.2 mg/dL (2.4-5.1); Potassium 4.4 mmol/L (3.5-5.5); Sodium 141 mmol/L (135-145); Uric Acid 4.7 mg/dL (2.9-7.7)
[2023-01-11 17:20] LABS: Albumin 4.1 d/dL (3.8-4.9); Calcium 9.4 mg/dL (8.7-10.3); Carbon Dioxide 23.9 mmol/L (21.6-31.8); Iron 55 UG/DL (50-170); Total Iron Binding Capacity 318 UG/DL (228-460)
[2023-01-11 18:30] LABS: Microalbumin Creatinine Ratio <20 mg/g Cr (0-30); Urine Creatinine 61.3 mg/dL (28.0-217.0)
== END | disposition home or self-care (01) ==
LOC: LABWHC1 09:52
PROVIDERS: ATTEND Internal Medicine Nephrology
DX: M10.9 Gout, unspecified (principal); N18.32 Chronic kidney disease, stage 3b; E61.1 Iron deficiency; D64.9 Anemia, unspecified; E55.9 Vitamin D deficiency, unspecified
CPT/HCPCS: 36415; 80048; 81001; 82040; 82043; 82306; 82570; 82728; 83540; 83550; 83735; 83970; 84100; 84550; 85025

== ENCOUNTER → 2023-03-17 | Outpatient (CLI) | payer MEDICARE ==
--- NOTE | 2023-03-20 19:33 | MM ---
Reason for Exam: Screening (asymptomatic). Last mammogram was performed 1 year(s) and 1 month(s) ago. Patient History: Menarche at age 14. First Full-Term at age 25. Postmenopausal. Hormonal Contraceptives for 7 years from age 27 until age 34. Sister had breast cancer, age 71. Mother had breast cancer, age 68. Sister had breast cancer, age 69. Risk Values: Con 5 year model risk: 5.5%. NCI Lifetime model risk: 10.3%. Prior Study Comparison: 04/17/2014 Bilateral Screening Mammogram, [facility]. 08/13/2015 Bilateral Screening Mammogram, [facility]. 02/16/2017 Bilateral Screening Mammogram, [facility]. 11/26/2018 Bilateral Screening Mammogram, [facility]. 11/02/2020 Bilateral Screening Mammogram, [facility]. 02/15/2022 Bilateral MG 3D screening mammo w/cad, [facility]. Tissue Density: The breast tissue is heterogeneously dense. This may lower the sensitivity of mammography. Findings: Analyzed By CAD. There is no suspicious group of microcalcifications or new suspicious mass in either breast. Overall Assessment: Negative, BI-RAD 1 Management: Screening Mammogram of both breasts in 1 year. SEE NOTE BELOW IN REGARDS TO PATIENT'S INCREASED 5 YEAR CON SCORE. Patient should continue monthly self-breast exams. A clinical breast exam by your physician is recommended on an annual basis. This exam should not preclude additional follow-up of suspicious palpable abnormalities. Note on Con scores and lifetime risk: 1. A Con score greater than 3% is considered moderate risk. If this is the case, consider specialist referral to assess eligibility for a risk reducing agent. 2. If overall lifetime risk for the development of breast cancer is 20% or higher, the patient may qualify for future screening with alternating mammogram and breast MRI. Electronically signed and approved by: Julienne Singh M.D. Radiologist
== END | disposition home or self-care (01) ==
LOC: RADMAMWWP 08:16
PROVIDERS: ATTEND Family Medicine
DX: Z12.31 Encounter for screening mammogram for malignant neoplasm of breast (principal); Z78.0 Asymptomatic menopausal state; Z80.3 Family history of malignant neoplasm of breast
CPT/HCPCS: 77063; 77067

== ENCOUNTER → 2023-06-08 | Outpatient (CLI) | payer MEDICARE ==
[2023-06-08 16:25] LABS: BUN/Creat Ratio 26.57 Ratio (12.00-20.00); Blood Urea Nitrogen 37.2 mg/dL (9.0-27.0); Calcium 9.1 mg/dL (8.7-10.3); Carbon Dioxide 25.2 mmol/L (21.6-31.8); Chloride 105 mmol/L (96-109); Glucose 78 mg/dL (70-110); Potassium 4.5 mmol/L (3.5-5.5); Sodium 141 mmol/L (135-145)
== END | disposition home or self-care (01) ==
LOC: LABWHC1 10:04
PROVIDERS: ATTEND Nurse Practitioner Family
DX: N18.32 Chronic kidney disease, stage 3b (principal)
CPT/HCPCS: 36415; 80048

== ENCOUNTER → 2023-07-12 | Outpatient (CLI) | payer MEDICARE ==
[2023-07-12 15:41] LABS: ALT 16 U/L (8-44); AST 19 U/L (13-35); Albumin 4.2 g/dL (3.8-4.9); Albumin/Globulin Ratio 1.75 Ratio (1.60-3.17); Alkaline Phosphatase 93 U/L (41-126); BUN/Creat Ratio 26.86 Ratio (12.00-20.00); Blood Urea Nitrogen 37.6 mg/dL (9.0-27.0); Calcium 9.4 mg/dL (8.7-10.3); Carbon Dioxide 27.5 mmol/L (21.6-31.8); Chloride 109 mmol/L (96-109); Chol/HDL Ratio 3.65 Ratio; Creatine Kinase 54 U/L (26-186); Globulin 2.4 g/dL (1.6-3.3); Glucose 99 mg/dL (70-110); LDL Cholesterol,Calculated 77.9 mg/dL (0.0-131.0); Potassium 4.5 mmol/L (3.5-5.5); Sodium 147 mmol/L (135-145); Total Bilirubin 0.2 mg/dL (0.3-1.2); Total Protein 6.6 g/dL (6.2-8.2); Uric Acid 3.8 mg/dL (2.9-7.7)
[2023-07-12 15:48] LABS: Basophils # (A) 0.05 X 10*3/uL (0.00-0.10); Eosinophils # (A) 0.24 X 10*3/uL (0.04-0.35); Eosinophils % (A) 4.7 %; HGB 12.1 g/dL (12.0-15.0); Lymphocytes # (A) 1.03 X 10*3/uL (0.90-5.00); Lymphocytes % (A) 20.3 %; MCH 29.1 pg (27.0-32.0); MCHC 31.8 g/dL (32.0-37.0); MCV 91.3 FL (80.0-97.0); Mean Platelet Volume 10.1 FL (9.5-12.2); Monocytes # (A) 0.44 X 10*3/uL (0.20-1.00); Monocytes % (A) 8.7 %; NRBC Per 100 WBC 0 X 10*3/uL (0.00-0.01); Neutrophils # (A) 3.31 X 10*3/uL (1.80-7.70); Neutrophils % (A) 65.1 %; Platelet Count 245 X 10*3/uL (140-440); RBC 4.16 X 10*6/uL (4.10-5.20); RDW 15.1 % (11.5-14.5); WBC 5.08 X 10*3/uL (4.50-10.00)
== END | disposition home or self-care (01) ==
LOC: LABWHC1 09:27
PROVIDERS: ATTEND Family Medicine
DX: E78.5 Hyperlipidemia, unspecified (principal); M10.09 Idiopathic gout, multiple sites
CPT/HCPCS: 36415; 80053; 80061; 82550; 83036; 84550; 85025

== ENCOUNTER 2023-07-26 09:10 | Day surgery (SDC) | payer MEDICARE ==
[2023-07-25 10:11] VITALS: BMI 26.6
[~2023-07-26 09:10] MED LIST changes: -LIDOCAINE 1% (10MG/ML) FOR IV START INTRADERMA PRN
[2023-07-26] MEDS: LACTATED RINGERS 1,000 ML IV ONE (09:24)
[2023-07-26] MEDS ORDERED: PROPOFOL 10 MG/ML 20 ML VIAL IV ONE (10:09)
[2023-07-26] MEDS ORDERED: LIDOCAINE 1% INJ 10MG/ML (20 ML MDV) ONE (10:09)
--- NOTE | 2023-07-26 10:22 | P.PCN ---
Date of Procedure: 07/26/23 Procedure(s) Performed: BRIEF HISTORY: Patient is a 78-year-old, pleasant, white female scheduled for an upper endoscopy as a part of evaluation of GERD and Wright's esophagus. PROCEDURE PERFORMED: Esophagogastroduodenoscopy With biopsy. PREOPERATIVE DIAGNOSIS: GERD/Wright's esophagus IV sedation per anesthesia. PROCEDURE: After informed consent was obtained, the patient was brought into the endoscopy unit. IV sedation was administered by Anesthesia under continuous monitoring. Initially the Olympus GIF-140 video endoscope was inserted into the mouth. Esophagus intubated without any difficulty. It was gradually advanced into the stomach and duodenum and carefully examined. The bulb and the second part of the duodenum appeared normal. The scope at this time was withdrawn to the stomach, adequately insufflated with air, and upon careful examination, mucosa of the antrum, body, cardia and the fundus appeared normal. The scope was then withdrawn into the esophagus.Mall hiatal hernia noted. The GE junction was located at 36 cm from the incisors.There was a short segment of Wright's eso phagus and from 35-36 cm from the incisors and biopsies were done from this area. The Rest of the esophagus appeared normal. There were no erosions or ulcerations seen and the patient tolerated the procedure well. 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 2.Small hiatal hernia. RECOMMENDATIONS: The findings of this examination were discussed with the patient as well as her family. She was advised to follow with the biopsy results. If the biopsy confirms the presence of Wright's esophagus he can have a repeat upper endoscopy in 3 years. In the meantime she will continue with Pepcid 20 mg twice daily and follow antireflux measures.
[2023-07-26 10:33] VITALS: TEMP 98.6
[2023-07-26 11:17] VITALS: BP 131/65; PULSE 72; RESP 20
== END 2023-07-26 11:09 | disposition home or self-care (01) ==
LOC: ORWHC2ENDO 09:10
PROVIDERS: ATTEND Internal Medicine Gastroenterology
DX: K22.70 Barrett's esophagus without dysplasia (principal); K21.9 Gastro-esophageal reflux disease without esophagitis; K44.9 Diaphragmatic hernia without obstruction or gangrene; I10 Essential (primary) hypertension; Z88.0 Allergy status to penicillin; N28.9 Disorder of kidney and ureter, unspecified; Z95.5 Presence of coronary angioplasty implant and graft; Z79.02 Long term (current) use of antithrombotics/antiplatelets; Z79.01 Long term (current) use of anticoagulants; Z79.899 Other long term (current) drug therapy
CPT/HCPCS: 88305; 43239; J2001; J2704

== ENCOUNTER → 2024-03-13 | Outpatient (CLI) | payer MEDICARE ==
--- NOTE | 2024-03-14 18:43 | MM ---
Reason for Exam: Screening (asymptomatic). Last screening mammogram was performed 12 month(s) ago. Patient History: Menarche at age 14. First Full-Term at age 25. Postmenopausal. Hormonal Contraceptives for 7 years from age 27 until age 34. Sister had breast cancer, age 71. Mother had breast cancer, age 68. Sister had breast cancer, age 69. Risk Values: Rula 5 year model risk: 5.4%. NCI Lifetime model risk: 9.5%. Prior Study Comparison: 11/02/2020 Bilateral Screening Mammogram, [facility]. 02/15/2022 Bilateral MG 3D screening mammo w/cad, [facility]. 03/17/2023 Bilateral MG 3D screening mammo w/cad, [facility]. Tissue Density: The breasts are heterogeneously dense, which may obscure small masses. Findings: Analyzed By CAD. There is no suspicious group of microcalcifications or new suspicious mass in either breast. Overall Assessment: Negative, BI-RAD 1 Management: Screening Mammogram of both breasts in 1 year. See note below in regards to patient's increased 5 year Rula score. Patient should continue monthly self-breast exams. A clinical breast exam by your physician is recommended on an annual basis. This exam should not preclude additional follow-up of suspicious palpable abnormalities. Note on Rula scores and lifetime risk: 1. A Rula score greater than 3% is considered moderate risk. If this is the case, consider specialist referral to assess eligibility for a risk reducing agent. 2. If overall lifetime risk for the development of breast cancer is 20% or higher, the patient may qualify for future screening with alternating mammogram and breast MRI. [facility], , 03/14/2024 6:40 PM. Electronically signed and approved by: Julienne Singh M.D. Radiologist
== END | disposition home or self-care (01) ==
LOC: RADMAMWWP 08:36
PROVIDERS: ATTEND Family Medicine
DX: Z12.31 Encounter for screening mammogram for malignant neoplasm of breast (principal); R92.333 Mammographic heterogeneous density, bilateral breasts; Z78.0 Asymptomatic menopausal state; Z80.3 Family history of malignant neoplasm of breast
CPT/HCPCS: 77063; 77067

== ENCOUNTER → 2024-07-11 | Outpatient (CLI) | payer MEDICARE ==
[2024-07-11 14:57] LABS: ALT 15 U/L (8-44); AST 22 U/L (13-35); Chol/HDL Ratio 3.42 Ratio; LDL Cholesterol,Calculated 69.4 mg/dL (0.0-131.0)
== END | disposition home or self-care (01) ==
LOC: LABWHC1 10:25
PROVIDERS: ATTEND Internal Medicine Cardiovascular Disease
DX: E78.2 Mixed hyperlipidemia (principal)
CPT/HCPCS: 36415; 80061; 84450; 84460

== ENCOUNTER → 2024-08-22 | Outpatient (CLI) | payer MEDICARE ==
[2024-08-22 15:40] LABS: BUN/Creat Ratio 22.06 Ratio (12.00-20.00); Blood Urea Nitrogen 39.7 mg/dL (9.0-27.0); Calcium 9.3 mg/dL (8.7-10.3); Carbon Dioxide 24.9 mmol/L (21.6-31.8); Chloride 104 mmol/L (96-109); Glucose 96 mg/dL (70-110); Potassium 4.7 mmol/L (3.5-5.5); Sodium 140 mmol/L (135-145)
== END | disposition home or self-care (01) ==
LOC: LABWHC1 09:29
PROVIDERS: ATTEND Internal Medicine Nephrology
DX: N18.32 Chronic kidney disease, stage 3b (principal)
CPT/HCPCS: 36415; 80048

== ENCOUNTER → 2024-10-22 | Outpatient (CLI) | payer MEDICARE ==
--- NOTE | 2024-10-22 21:34 | US ---
EXAMINATION TYPE: US kidneys/renal and bladder DATE OF EXAM: 10/22/2024 COMPARISON: 03/09/2022 CLINICAL INDICATION: Female, 79 years old with history of N18.32 CKD; Patient denies any signs or sym ptoms, Hx HTN. TECHNIQUE: Grayscale imaging of the bilateral kidneys and urinary bladder: FINDINGS: EXAM MEASUREMENTS: Right Kidney: 11.5 x 3.5 x 4.1 cm Left Kidney: 9.6 x 4.3 x 5.6 cm Post Void Residual Volume: None Right Kidney: wnl, no evidence for hydronephrosis, mass or renal calculus. Previously seen cyst not r edemonstrated on this exam Left Kidney: wnl, no evidence for hydronephrosis, mass or renal calculus. Bladder: Nondistention limiting evaluation. Bilateral Jets seen: Yes Normal Post Void Residual: Yes IMPRESSION: No hydronephrosis. No evidence for urinary retention. [facility], , 10/22/2024 9:31 PM
== END | disposition home or self-care (01) ==
LOC: RADUSWWP 10:23
PROVIDERS: ATTEND Internal Medicine Nephrology
DX: N18.32 Chronic kidney disease, stage 3b (principal)
CPT/HCPCS: 76770